=== PATIENT | male | born 1980 | race Caucasian/White ===

== ENCOUNTER 2016-05-12 15:41 | Outpatient (RCR) | payer OTHER ==
[~2016-05-12 15:41] MED LIST: PERC5TAB8
== END 2016-05-25 | disposition home or self-care (01) ==
LOC: M OUTALCOH 15:41
PROVIDERS: ATTEND Psychiatry & Neurology Psychiatry
DX: F11.20 Opioid dependence, uncomplicated (principal); Z72.0 Tobacco use

== ENCOUNTER 2016-06-17 09:51 | Outpatient (RCR) | payer OTHER | END 2016-06-22 | LOC: M OUTALCOH 09:51 | PROVIDERS: ATTEND Psychiatry & Neurology Psychiatry | DX: F11.20 Opioid dependence, uncomplicated (principal); Z72.0 Tobacco use ==

== ENCOUNTER 2016-07-01 10:40 | Outpatient (RCR) | payer OTHER | END 2016-07-23 | LOC: M OUTALCOH 10:40 | PROVIDERS: ATTEND Psychiatry & Neurology Psychiatry | DX: F11.20 Opioid dependence, uncomplicated (principal); Z72.0 Tobacco use ==

== ENCOUNTER → 2018-03-20 | Outpatient (REF) | LOC: M SMT 08:51 | DX: Z02.71 Encounter for disability determination (principal) ==

== ENCOUNTER → 2018-04-11 | Outpatient (CLI) | payer MEDICAID, OTHER ==
[~2018-04-11] MED LIST changes: +SUBO8MIS PO; +VYVA50CA4 PO
[2018-04-11 12:23] LABS: ALBUMIN 4.1 GM/DL (3.2-5.2); ALT/SGPT 88 U/L (12-78); BILIRUBIN,TOTAL 0.6 MG/DL (0.2-1.0); BLOOD UREA NITROGEN 14 MG/DL (7-18); CALCIUM LEVEL 8.9 MG/DL (8.5-10.1); CARBON DIOXIDE LEVEL 33 MEQ/L (21-32); CHLORIDE LEVEL 103 MEQ/L (98-107); CHOLESTEROL LEVEL 148 MG/DL (<200); CHOLESTEROL RISK RATIO 2.114 (<5); CREATININE FOR GFR 0.76 MG/DL (0.70-1.30); FREE T4 1.09 NG/DL (0.76-1.46); GLOMERULAR FILTRATION RATE > 60.0 (>60); GLUCOSE, FASTING 97 MG/DL (70-100); HDL CHOLESTEROL 70 MG/DL (>40); LDL CHOLESTEROL 68 MG/DL (<100); NON-HDL-C 78 MG/DL; POTASSIUM SERUM 4.6 MEQ/L (3.5-5.1); SODIUM LEVEL 139 MEQ/L (136-145); TOTAL PROTEIN 7.3 GM/DL (6.4-8.2); TRIGLYCERIDES LEVEL 48 MG/DL (<150)
[2018-04-11 12:34] LABS: HEMATOCRIT 44.9 % (42.0-52.0); HEMOGLOBIN 14.7 g/dl (13.5-17.5); MEAN CORPUSCULAR HEMOGLOBIN 30.9 pg (27.0-33.0); MEAN CORPUSCULAR HGB CONC 32.7 g/dl (32.0-36.5); MEAN CORPUSCULAR VOLUME 94.3 fl (80.0-96.0); PLATELET COUNT, AUTOMATED 116 10^3/uL (150-450); RED BLOOD COUNT 4.76 10^6/uL (4.30-6.10); WHITE BLOOD COUNT 4.6 10^3/uL (4.0-10.0)
[2018-04-12 10:24] LABS: HIV 1&2 SCREEN CENTAUR NEGATIVE (NEGATIVE)
[2018-04-12 10:40] LABS: HEPATITIS C VIRUS ABY INDEX > 11.0 INDEX (<0.8)
== END ==
LOC: M LAB 11:09
PROVIDERS: ATTEND Physician Assistant
DX: Z13.220 Encounter for screening for lipoid disorders (principal); Z11.59 Encounter for screening for other viral diseases; Z11.4 Encounter for screening for human immunodeficiency virus [HIV]; F90.9 Attention-deficit hyperactivity disorder, unspecified type

== ENCOUNTER 2018-05-09 15:08 | Emergency (ER) | payer OTHER ==
[~2018-05-09] VITALS: Ht 200.7 cm; Wt 81.8 kg
[~2018-05-09 15:08] MED LIST changes: +HYDRO50TAB PO; +RISP1TAB42 PO; +TRAZO50TA PO
[2018-05-09 15:53] LABS: HEMATOCRIT 45.8 % (42.0-52.0); HEMOGLOBIN 15.4 g/dl (13.5-17.5); MEAN CORPUSCULAR HEMOGLOBIN 31.4 pg (27.0-33.0); MEAN CORPUSCULAR HGB CONC 33.6 g/dl (32.0-36.5); MEAN CORPUSCULAR VOLUME 93.5 fl (80.0-96.0); PLATELET COUNT, AUTOMATED 178 10^3/uL (150-450); WHITE BLOOD COUNT 5.9 10^3/uL (4.0-10.0)
[2018-05-09 16:26] LABS: AMPHETAMINES LEVEL URINE NEGATIVE (NEGATIVE); BARBITURATES URINE NEGATIVE (NEGATIVE); BENZODIAZEPINES URINE NEGATIVE (NEGATIVE); CANNABINOIDS URINE POSITIVE (NEGATIVE); COCAINE METABOLITE URINE NEGATIVE (NEGATIVE); METHADONE URINE NEGATIVE (NEGATIVE); OPIATES URINE NEGATIVE (NEGATIVE); PHENCYCLIDINE URINE NEGATIVE (NEGATIVE)
[2018-05-09 16:40] LABS: ACETAMINOPHEN LEVEL < 2.0 UG/ML (10.0-30.0); ALBUMIN 4.1 GM/DL (3.2-5.2); ALT/SGPT 52 U/L (12-78); BILIRUBIN,DIRECT 0.2 MG/DL (0.0-0.2); BILIRUBIN,TOTAL 0.4 MG/DL (0.2-1.0); BLOOD UREA NITROGEN 10 MG/DL (7-18); CALCIUM LEVEL 8.7 MG/DL (8.5-10.1); CARBON DIOXIDE LEVEL 32 MEQ/L (21-32); CHLORIDE LEVEL 102 MEQ/L (98-107); CREATININE FOR GFR 0.88 MG/DL (0.70-1.30); ETHYL ALCOHOL (ETHANOL) < 0.003 % (0.000-0.010); GLOMERULAR FILTRATION RATE > 60.0 (>60); GLUCOSE, FASTING 91 MG/DL (70-100); SALICYLATE LEVEL < 1.7 MG/DL (5.0-30.0); SODIUM LEVEL 139 MEQ/L (136-145); THYROID STIMULATING HORMONE 0.753 uIU/ML (0.358-3.740); TOTAL PROTEIN 7.3 GM/DL (6.4-8.2)
[2018-05-09] MEDS ORDERED: BUPRENORPHINE/NALOXONE 8-2MG SUBLINGUAL TABLET(SUBOXONE) SL ONE (18:30)
[2018-05-09] MEDS ORDERED: ENTER DRUG NAME HERE (PATIENT'S OWN MED) SL ONE (18:45)
--- NOTE | 2018-05-09 20:17 | ECGEPIP ---
Stationary ECG Study [facility] - ED Test Date: 2018-05-09 Pat Name: KYAW QUIÑONES Department: Room: - Gender: M Carpenter Mate: michelle : 1980 Requested By: VANNA LEHMAN Order Number: [id number] Reading MD: Liam May Measurements Intervals [place] Rate: 71 P: 93 NH: 154 QRS: 74 QRSD: 105 T: 72 QT: 361 QTc: 392 Interpretive Statements SINUS RHYTHM WITH SINUS ARRHYTHMIA EARLY REPOLARIZATION VS PERICARDITIS NONSPECIFIC ST T WAVE CHANGES NO OLD ECG CLINICAL CORRELATION ADVISED Electronically Signed On 05-09-2018 20:16:31 EST by Liam May
[2018-05-10] MEDS ORDERED: BUPRENORPHINE/NALOXONE 8-2MG SUBLINGUAL TABLET(SUBOXONE) SL ONE (06:00)
[2018-05-10] MEDS ORDERED: BUPRENORPHINE/NALOXONE 2-0.5MG SUBLINGUAL TABLET(SUBOXONE) SL ONE (06:15)
[2018-05-10 08:49] VITALS: BP 134/84
== END 2018-05-10 08:54 | disposition short-term general hospital (02) ==
LOC: M ED 15:08
DX: F22 Delusional disorders (principal); F99 Mental disorder, not otherwise specified; B19.20 Unspecified viral hepatitis C without hepatic coma; Z88.8 Allergy status to other drugs, medicaments and biological substances; Z79.899 Other long term (current) drug therapy
CPT/HCPCS: 36415; 80048; 80076; 80307; 84443; 85027; 93005; 99285; G0480

== ENCOUNTER → 2018-05-12 | Outpatient (REF) | payer OTHER ==
[2018-05-12 14:58] LABS: HEPATITIS B SURFACE ANTIBODY NEGATIVE (POSITIVE); HEPATITIS B SURFACE ANTIGEN NEGATIVE (NEGATIVE)
[2018-05-18 00:06] LABS: HEPATITIS A IgG TOTAL Positive (Negative); HEPATITIS C VIRUS GENOTYPE 1a (.)
== END ==
LOC: M LABDRAW1 12:50
PROVIDERS: ATTEND Physician Assistant
DX: B17.10 Acute hepatitis C without hepatic coma (principal)

== ENCOUNTER 2018-05-17 09:58 | Inpatient (IN) | payer OTHER ==
[~2018-05-17] VITALS: Ht 200.7 cm; Wt 83.4 kg
[2018-05-17 10:56] LABS: HEMATOCRIT 44.2 % (42.0-52.0); HEMOGLOBIN 14.8 g/dl (13.5-17.5); MEAN CORPUSCULAR HEMOGLOBIN 31.3 pg (27.0-33.0); MEAN CORPUSCULAR HGB CONC 33.5 g/dl (32.0-36.5); MEAN CORPUSCULAR VOLUME 93.4 fl (80.0-96.0); PLATELET COUNT, AUTOMATED 155 10^3/uL (150-450); RED BLOOD COUNT 4.73 10^6/uL (4.30-6.10); WHITE BLOOD COUNT 5.6 10^3/uL (4.0-10.0)
[2018-05-17 11:30] LABS: AMPHETAMINES LEVEL URINE NEGATIVE (NEGATIVE); BARBITURATES URINE NEGATIVE (NEGATIVE); BENZODIAZEPINES URINE NEGATIVE (NEGATIVE); CANNABINOIDS URINE POSITIVE (NEGATIVE); COCAINE METABOLITE URINE NEGATIVE (NEGATIVE); METHADONE URINE NEGATIVE (NEGATIVE); OPIATES URINE NEGATIVE (NEGATIVE); PHENCYCLIDINE URINE NEGATIVE (NEGATIVE)
[2018-05-17 11:43] LABS: ACETAMINOPHEN LEVEL < 2.0 UG/ML (10.0-30.0); ALBUMIN 3.9 GM/DL (3.2-5.2); ALT/SGPT 70 U/L (12-78); BILIRUBIN,DIRECT 0.2 MG/DL (0.0-0.2); BILIRUBIN,TOTAL 0.3 MG/DL (0.2-1.0); BLOOD UREA NITROGEN 14 MG/DL (7-18); CARBON DIOXIDE LEVEL 29 MEQ/L (21-32); CHLORIDE LEVEL 104 MEQ/L (98-107); CREATININE FOR GFR 0.88 MG/DL (0.70-1.30); ETHYL ALCOHOL (ETHANOL) < 0.003 % (0.000-0.010); GLOMERULAR FILTRATION RATE > 60.0 (>60); GLUCOSE, FASTING 114 MG/DL (70-100); POTASSIUM SERUM 4.7 MEQ/L (3.5-5.1); SALICYLATE LEVEL < 1.7 MG/DL (5.0-30.0); SODIUM LEVEL 139 MEQ/L (136-145); TOTAL PROTEIN 7.1 GM/DL (6.4-8.2)
[2018-05-17] MEDS ORDERED: traZODone 50 MG TAB PO PRN (15:00)
[2018-05-17] MEDS ORDERED: MAALOX 30 ML SUSP *UDC PO PRN (15:00)
[2018-05-17 16:02] VITALS: BP 140/77
[2018-05-17] MEDS: BUPRENORPHINE/NALOXONE 8-2MG SUBLINGUAL TABLET(SUBOXONE) SL SCH (18:30)
[2018-05-17] MEDS: ACETAMINOPHEN TAB 650MG DOSE (2X325MG) PO PRN (18:43)
[2018-05-17] MEDS: NICOTINE POLACRILEX 2 MG GUM PO PRN ×2 (18:43→23:37)
[2018-05-17] MEDS ORDERED: PALIPERIDONE 3 MG ER TAB (INVEGA) PO SCH (21:00)
[2018-05-18] MEDS: NICOTINE POLACRILEX 2 MG GUM PO PRN ×8 (04:13→23:43)
[2018-05-18] MEDS: ACETAMINOPHEN TAB 650MG DOSE (2X325MG) PO PRN ×2 (04:14→19:24)
[2018-05-18 06:45] VITALS: BP 139/88
[2018-05-18] MEDS: BUPRENORPHINE/NALOXONE 8-2MG SUBLINGUAL TABLET(SUBOXONE) SL SCH ×2 (08:04→14:28)
[2018-05-18] MEDS: PILL CRUSHER/CUTTER 1 EACH XX PRN (08:04)
[2018-05-18] MEDS ORDERED: PALIPERIDONE 3 MG ER TAB (INVEGA) PO SCH (09:00)
[2018-05-18] MEDS: risperiDONE 1 MG TAB PO SCH (09:00)
--- NOTE | 2018-05-18 10:20 | HPEPDOC ---
[facility] Medical History & Physical Date of Admission May 17, 2018 History and Physical PCP: [facility] ATTENDING: Dr. Corby Greenfield HPI: 38yoM admitted to [facility] for psychotic disorder, being medically examined today. No acute medical complaints today. Denies any fevers, chills, weakness, fatigue, MOSS, CP, SOB, cough, palpitations, abdominal pain, N/V/D or changes in bowel or bladder habits. PMHx: Hepatitis C follows with Dr Nur Substance use Follows with Dr Saldana. ADHD. Anxiety depression PSHX: repair fracture rt arm SOCHX: Resides in: [place] Marital Status: single Kids: none Employment: unempoyed Tobacco use: Vape ETOH: denies Illicit Drugs: marijuana. Heroin last used several years ago. Suboxone as per Dr Saldana. ROS: As noted in HPI, otherwise 11pt ROS of systems reviewed and unremarkable. PE: GEN: 38yoM, appears stated age. Well-nourished, well developed. No acute distress. Alert and oriented x 3. Pleasant, interactive. HEENT: Normocephalic, atraumatic. Pupils are equal, round, and reactive to light. Extraocular movements are intact. No nystagmus appreciated. Sclera are nonicteric. Conjunctiva without injection. Nose midline. Nasal turbinates without bogginess. EACs both patent BL. TMs both visualized and zimmer with good cone of light, no bulging or erythema. No facial asymmetry. Moist mucous membranes. Dentition fair. Pharynx pink and moist, no cobblestoning. Neck supple, trachea midline. No lymphadenopathy or thyromegaly appreciated. CHEST: Regular rate and rhythm, +S1, +S2 LUNGS: Clear to auscultation bilaterally. No wheezes, rales, or rhonchi. Breathing appears symmetric and easy. Patient is speaking in full sentences. No accessory muscle use. ABD: Round, soft, non-tender, non-distended. +Bowel sounds throughout. No rebound or guarding. No costovertebral angle tenderness. EXT: Pulses 2+ bilaterally dorsalis pedis and radial. No lower extremity edema appreciated. SKIN: [place], dry, warm. Capillary refill <2sec. No rashes. NEURO: Alert and oriented x 3. Cranial nerves III-XII are intact. No focal deficits appreciated. EKG: SINUS RHYTHM WITH SINUS ARRHYTHMIA EARLY REPOLARIZATION VS PERICARDITIS NONSPECIFIC ST T WAVE CHANGES NO OLD ECG CLINICAL CORRELATION ADVISED Electronically Signed On 05-09-2018 20:16:31 EST by Liam May A&P: 38yoM admitted to [facility] for psychotic disorder 1. Psych. Plan per Psychiatry. EKG on file. 2. Nicotine dependence. Patch available. 3. Hepatitis C. Follows with Dr Nur. 4. Follow up with PCP on discharge. 5. H/O Substance use. Management per psychiatry. Follows with Dr Saldana . Vital Signs Vital Signs Date Time Temp Pulse Resp B/P (MAP) Pulse Ox O2 Delivery O2 Flow Rate FiO2 05/18/18 06:45 98.6 99 18 139/88 (105) Room Air 05/17/18 16:02 98 Laboratory Data Labs 24H Laboratory Tests 2 05/17/18 10:44: Nucleated Red Blood Cells % (auto) 0.0, Anion Gap 6L, Glomerular Filtration Rate > 60.0, Calcium Level 9.0, Aspartate Amino Transf (AST/SGOT) 62H, Alanine Aminotransferase (ALT/SGPT) 70, Alkaline Phosphatase 79, Total Bilirubin 0.3, Direct Bilirubin 0.2, Total Protein 7.1, Albumin 3.9, Albumin/Globulin Ratio 1.22, Thyroid Stimulating Hormone (TSH) 1.000, Salicylates Level < 1.7L, Urine Amphetamines Screen NEGATIVE, Urine Benzodiazepines Screen NEGATIVE, Urine Opiates Screen NEGATIVE, Urine Methadone Screen NEGATIVE, Acetaminophen Level < 2.0L, Urine Barbiturates Screen NEGATIVE, Urine Phencyclidine Screen NEGATIVE, Urine Cocaine Metabolite Screen NEGATIVE, Urine Cannabinoids Screen POSITIVEH, Ethyl Alcohol Level < 0.003 CBC/BMP Laboratory Tests 05/17/18 10:44 Red Blood Count 4.73, Mean Corpuscular Volume 93.4, Mean Corpuscular Hemoglobin 31.3, Mean Corpuscular Hemoglobin Concent 33.5, Red Cell Distribution Width 13.3 Home Medications Scheduled Buprenorphine/Naloxone (Suboxone 8-2 mg) 1 Mis Mis, 2.5 STRIP PO DAILY Allergies Coded Allergies: Gabapentin (Verified Adverse Reaction, Mild, NAUSEA, 4/613) Pentazocine (Verified Adverse Reaction, Mild, NAUSEA, 4/10/05) Noris Villalta May 18, 2018 10:20
[2018-05-18] MEDS ORDERED: LORazepam 1 MG TAB PO PRN (15:15)
[2018-05-18] MEDS ORDERED: LORazepam 0.5 MG TAB PO PRN (15:30)
[2018-05-18 18:00] VITALS: BP 140/72
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
[2018-05-18] MEDS ORDERED: hydrOXYzine 50 MG TAB PO PRN (22:00)
[2018-05-19] MEDS: ACETAMINOPHEN TAB 650MG DOSE (2X325MG) PO PRN ×2 (01:49→17:04)
[2018-05-19 07:00] VITALS: BP 124/75
[2018-05-19] MEDS: risperiDONE 1 MG TAB PO SCH ×2 (08:01→09:00)
[2018-05-19] MEDS: NICOTINE POLACRILEX 2 MG GUM PO PRN ×6 (08:37→22:45)
[2018-05-19] MEDS: BUPRENORPHINE/NALOXONE 8-2MG SUBLINGUAL TABLET(SUBOXONE) SL SCH ×2 (08:37→17:04)
[2018-05-19] MEDS ORDERED: diphenhydrAMINE INJ 50MG/ML VIAL (J1200) IM STA (10:47)
[2018-05-19] MEDS ORDERED: HALOPERIDOL 5 MG/ML VIAL (J1630) IM STA (10:47)
[2018-05-19] MEDS ORDERED: diphenhydrAMINE INJ 50MG/ML VIAL (J1200) IM ONE (11:00)
[2018-05-19] MEDS ORDERED: HALOPERIDOL 5 MG/ML VIAL (J1630) IM ONE (11:00)
[2018-05-19] MEDS ORDERED: risperiDONE 1 MG TAB PO SCH (11:30)
--- NOTE | 2018-05-19 17:24 | MHIPNPDOC ---
[facility] Progress Note Progress Note DATE OF SERVICE: 05/19/18 HISTORY: HISTORY OF THE PRESENT ILLNESS: As per ED report: "Pt presented to ED after he returned to his home and felt unsafe. Pt lives in [facility] apartment for 3.5 years. Pt reported, 2 days prior to [place], Pt started felling very cold air; to the point where he could not take a shower, "can't move",breathing in cold air, "sucking all breath out of me". According to Pt, someone is trying to harm him. Pt stated, "When lay on bed, feels like someone has pads on my shoulders, sides. shocking me", "can't use the bathroom". According to Pt, went to stay with the Uncle over the weekend, nothing happened. When Pt returned home , it started again. Pt is afraid to return to back to that same apartment. Pt's [employer] Coordinator is Trinity Nunes. Pt reported clean and on soboxone for the last 5.5 years." Today, as the patient was being iterviewed, he reported feeling different while at [facility], as if people looked at him in a different way, he said he tried to make phone calls but his calls got disconnected, that people came to the hallway and kept looking at him as if they were judging him. He said he knew that kind of look on people's face because he had been in the street using drugs years ago and he knew how to read those expressions on other people's faces. Patient didn't take his medication, inisited on the fact that he doesn't want medications that are going to make him sleepy because he needs awake in case somedy wants to harm him. VITAL SIGNS: See below. NEW TEST RESULTS: See below CURRENT MEDICATIONS: See below. MENTAL STATUS EXAMINATION: Patient is a 38-year old male, who is alert, uncooperative, pacing the hallways, restless. Speech: Is rapid, a little pressured, loud, normal tone, spontaneous and fluent. Language skills are fair. Thought processes including: circumstantial and tangential, drailed. Thought content: paranoid and bizarre delusions, denies SI and HI, denies AV hallucinations. Description of abnormal or psychotic thoughts: Patient is extremely psychotic. Today he is paranoid about staff, he doubts of all of us, he thinks we are part of a conspiracy.Initially he felt someone wanted to harm him in his apartment only but now he thinks we want to harm him too. He is experiencing somatic hallucinations at [facility] too. Judgment: poor. Insight: poor. Orientation: x3. Recent and remote memory: fair. Attention span and concentration: distractible. Language: average Fund of knowledge: average. Mood: irritable, extremely anxious. Affect: congruent with mood. DIAGNOSES: 1. Paranoid schizophrenia versus delusional disorder. 2. marihuana use disorder. 3. R/O substance induced psychotic disorder. ASSESSMENT: Patient has been non compliant with medications, he adamantly has refused to take them, he is denying having a thought disorder. Consulted with treatment team and they all thought that he was too dangerous. He was served for a TOO, but before he was served I had to speak with him once again about the medications and about him being discharged and about him seeing his private provider at [facility]. We spoke about him having a mental illness (which he denies) and needing treatment, told him he is dangerous to other people. He didn't like it but he didn't have an outburst as I had expected. At the end he said he would take the medications, he read the letter that was served to him about his TOO. After that, he calmed down, remained in his room, stopped pacing the hallways, took his medication. MANAGEMENT PLAN: Risperdal 2 mgs Po QAM ( he has requested it this way) and Suboxone, PM dose at 5 pm TIME SPENT: 25 minutes. Vital Signs Vital Signs Date Time Temp Pulse Resp B/P (MAP) Pulse Ox O2 Delivery O2 Flow Rate FiO2 05/19/18 07:00 98.0 65 14 124/75 (91) 05/18/18 06:45 Room Air 05/17/18 16:02 98 Current Medications Current Medications Acetaminophen (Tylenol Tab) 650 mg Q6HP PRN PO HEADACHE or DISCOMFORT Last administered on 05/19/18at 17:04; Start 05/17/18 at 15:00 Al Hydrox/Mg Hydrox/Simethicone (Mylanta) 30 ml Q4HP PRN PO HEARTBURN/INDIGESTION; Start 05/17/18 at 15:00 Buprenorphine/ Naloxone (Suboxone 8/2mg) 1 tab DAILY@1700 SL Last administered on 05/19/18at 17:04; Start 05/19/18 at 17:00 Buprenorphine/ Naloxone (Suboxone 8/2mg) 1 tab QPM@1400 SL Last administered on 05/18/18at 14:28; Start 05/17/18 at 14:00; Stop 05/19/18 at 12:26; Status DC Buprenorphine/ Naloxone (Suboxone 8/2mg) 1.5 tab DAILY SL Last administered on 05/19/18at 08:37; Start 05/18/18 at 09:00 Diphenhydramine HCl (Benadryl) 50 mg STAT STAT IM ; Start 05/19/18 at 10:47; Stop 05/19/18 at 10:48; Status Cancel Haloperidol (Haldol) 10 mg STAT STAT IM ; Start 05/19/18 at 10:47; Stop 05/19/18 at 10:48; Status Cancel Hydroxyzine HCl (Atarax) 50 mg Q4HP PRN PO ANXIETY/AGITATION; Start 05/18/18 at 22:00 Lorazepam (Ativan) 0.5 mg Q4HP PRN PO ANXIETY Last administered on 05/18/18at 15:38; Start 05/18/18 at 15:30; Stop 05/18/18 at 21:47; Status DC Lorazepam (Ativan) 1 mg Q4HP PRN PO ANXIETY; Start 05/18/18 at 15:15; Stop 05/18/18 at 15:29; Status DC Magnesium Hydroxide (Milk Of Magnesia) 30 ml DAILYPRN PRN PO CONSTIPATION; Start 05/17/18 at 15:00 Nicotine (Nicorette) 2 mg Q2HP PRN PO SMOKING CESSATION Last administered on 05/19/18at 14:39; Start 05/17/18 at 18:45 Paliperidone (Invega) 3 mg QAM PO Last administered on 05/18/18at 11:38; Start 05/18/18 at 09:00; Stop 05/18/18 at 15:10; Status DC Paliperidone (Invega) 3 mg QHS PO ; Start 05/17/18 at 21:00; Stop 05/18/18 at 11:16; Status DC Risperidone (RisperDAL) 1 mg BID PO Last administered on 05/19/18at 11:28; Start 05/19/18 at 11:30; Stop 05/19/18 at 12:22; Status DC Risperidone (RisperDAL) 1 mg DAILY PO ; Start 05/18/18 at 09:00; Stop 05/19/18 at 11:23; Status DC Risperidone (RisperDAL) 2 mg QAM PO ; Start 05/20/18 at 09:00 Trazodone HCl (Desyrel) 50 mg QHSP PRN PO INSOMNIA; Start 05/17/18 at 15:00 Allergies Coded Allergies: Gabapentin (Verified Adverse Reaction, Mild, NAUSEA, 07/29/12) Pentazocine (Verified Adverse Reaction, Mild, NAUSEA, 07/29/12) BEN GRAHAM MD May 19, 2018 17:24
[2018-05-19 18:17] VITALS: BP 128/60
[2018-05-20] MEDS: NICOTINE POLACRILEX 2 MG GUM PO PRN ×6 (06:00→21:20)
[2018-05-20 06:14] VITALS: BP 118/64
[2018-05-20] MEDS: risperiDONE 2 MG TAB PO SCH (09:08)
[2018-05-20] MEDS: PILL CRUSHER/CUTTER 1 EACH XX PRN (09:08)
[2018-05-20] MEDS: BUPRENORPHINE/NALOXONE 8-2MG SUBLINGUAL TABLET(SUBOXONE) SL SCH ×2 (09:08→16:52)
[2018-05-20] MEDS: ACETAMINOPHEN TAB 650MG DOSE (2X325MG) PO PRN (15:06)
[2018-05-20 18:00] VITALS: BP 133/74
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
[2018-05-21 06:31] VITALS: BP 130/76
[2018-05-21] MEDS: BUPRENORPHINE/NALOXONE 8-2MG SUBLINGUAL TABLET(SUBOXONE) SL SCH ×2 (08:44→17:19)
[2018-05-21] MEDS: risperiDONE 2 MG TAB PO SCH (08:46)
[2018-05-21] MEDS: DOCUSATE SODIUM 100 MG CAP PO SCH ×2 (09:00→21:00)
[2018-05-21] MEDS ORDERED: DOCUSATE SODIUM 100 MG CAP PO SCH (09:00)
[2018-05-21] MEDS: BISACODYL 5 MG TAB PO SCH (09:00)
[2018-05-21] MEDS: ACETAMINOPHEN TAB 650MG DOSE (2X325MG) PO PRN ×2 (10:35→16:10)
[2018-05-21] MEDS: NICOTINE POLACRILEX 2 MG GUM PO PRN ×4 (10:36→21:10)
[2018-05-21] MEDS: MOM 30ML SUSPENSION UDC PO PRN (11:37)
--- NOTE | 2018-05-21 12:23 | MHIPNPDOC ---
[facility] Progress Note Progress Note DATE OF SERVICE: 05/21/18 HISTORY: HISTORY OF THE PRESENT ILLNESS: As per ED report: "Pt presented to ED after he returned to his home and felt unsafe. Pt lives in [facility] apartment for 3.5 years. Pt reported, 2 days prior to [place], Pt started felling very cold air; to the point where he could not take a shower, "can't move",breathing in cold air, "sucking all breath out of me". According to Pt, someone is trying to harm him. Pt stated, "When lay on bed, feels like someone has pads on my shoulders, sides. shocking me", "can't use the bathroom". According to Pt, went to stay with the Uncle over the weekend, nothing happened. When Pt returned home , it started again. Pt is afraid to return to back to that same apartment. Pt's TLS Coordinator is Trinity Nunes. Pt reported clean and on soboxone for the last 5.5 years." Today, as the patient was being iterviewed, he reported feeling different [facility] at [facility], as if people looked at him in a different way, he said he tried to make phone calls but his calls got disconnected, that people came to the hallway and kept looking at him as if they were judging him. He said he knew that kind of look on people's face because he had been in the street using drugs years ago and he knew how to read those expressions on other people's faces. Patient didn't take his medication, inisited on the fact that he doesn't want medications that are going to make him sleepy because he needs awake in case somedy wants to harm him. VITAL SIGNS: See below. NEW TEST RESULTS: See below CURRENT MEDICATIONS: See below. MENTAL STATUS EXAMINATION: Patient is a 38-year old male, who is alert,cooperative, calm today Speech: Is less rapid, a little less pressured, loud, normal tone, spontaneous and fluent. Language skills are fair. Thought processes including: Still disorganized, although less than when he was admitted Thought content: paranoid and bizarre delusions, denies SI and HI, denies AV hallucinations. Description of abnormal or psychotic thoughts: He still has paranoid and bizarre delusions Judgment: poor. Insight: poor. Orientation: x3. Recent and remote memory: fair. Attention span and concentration: distractible. Language: average Fund of knowledge: average. Mood: anxious. Affect: congruent with mood. DIAGNOSES: 1. Paranoid schizophrenia versus delusional disorder. 2. marihuana use disorder. 3. R/O substance induced psychotic disorder. ASSESSMENT: Patient has been calmer, he is not complaining of staff or other patients looking at him in a different way. He has complained of constipation,most likely secondary to Suboxone, ordered Dulcolax and Colace. He has been compliant with his medications but did not want to take the Dulcolax/Colace after he had said he needed something for constipation. MANAGEMENT PLAN: Risperdal 2 mgs Po QAM ( he has requested it this way) and Suboxone, PM dose at 5 pm TIME SPENT: 25 minutes. Vital Signs Vital Signs Date Time Temp Pulse Resp B/P (MAP) Pulse Ox O2 Delivery O2 Flow Rate FiO2 05/21/18 06:31 98.5 59 18 130/76 (94) Room Air 05/17/18 16:02 98 Current Medications Current Medications Acetaminophen (Tylenol Tab) 650 mg Q6HP PRN PO HEADACHE or DISCOMFORT Last administered on 05/21/18at 10:35; Start 05/17/18 at 15:00 Al Hydrox/Mg Hydrox/Simethicone (Mylanta) 30 ml Q4HP PRN PO HEARTBURN/INDIGESTION; Start 05/17/18 at 15:00 Bisacodyl (Dulcolax Tab) 5 mg DAILY PO ; Start 05/21/18 at 09:00 Buprenorphine/ Naloxone (Suboxone 8/2mg) 1 tab DAILY@1700 SL Last administered on 05/20/18at 16:52; Start 05/19/18 at 17:00 Buprenorphine/ Naloxone (Suboxone 8/2mg) 1 tab QPM@1400 SL Last administered on 05/18/18at 14:28; Start 05/17/18 at 14:00; Stop 05/19/18 at 12:26; Status DC Buprenorphine/ Naloxone (Suboxone 8/2mg) 1.5 tab DAILY SL Last administered on 05/21/18at 08:44; Start 05/18/18 at 09:00 Diphenhydramine HCl (Benadryl) 50 mg STAT STAT IM ; Start 05/19/18 at 10:47; Stop 05/19/18 at 10:48; Status Cancel Docusate Sodium (Colace) 100 mg BID PO ; Start 05/21/18 at 09:00 Docusate Sodium (Colace) 100 mg DAILY PO ; Start 05/21/18 at 09:00; Status UNV Haloperidol (Haldol) 10 mg STAT STAT IM ; Start 05/19/18 at 10:47; Stop 05/19/18 at 10:48; Status Cancel Hydroxyzine HCl (Atarax) 50 mg Q4HP PRN PO ANXIETY/AGITATION; Start 05/18/18 at 22:00 Lorazepam (Ativan) 0.5 mg Q4HP PRN PO ANXIETY Last administered on 05/18/18at 15:38; Start 05/18/18 at 15:30; Stop 05/18/18 at 21:47; Status DC Lorazepam (Ativan) 1 mg Q4HP PRN PO ANXIETY; Start 05/18/18 at 15:15; Stop 05/18/18 at 15:29; Status DC Magnesium Hydroxide (Milk Of Magnesia) 30 ml DAILYPRN PRN PO CONSTIPATION Last administered on 05/21/18at 11:37; Start 05/17/18 at 15:00 Nicotine (Nicorette) 2 mg Q2HP PRN PO SMOKING CESSATION Last administered on 05/21/18at 10:36; Start 05/17/18 at 18:45 Paliperidone (Invega) 3 mg QAM PO Last administered on 05/18/18at 11:38; Start 05/18/18 at 09:00; Stop 05/18/18 at 15:10; Status DC Paliperidone (Invega) 3 mg QHS PO ; Start 05/17/18 at 21:00; Stop 05/18/18 at 11:16; Status DC Risperidone (RisperDAL) 1 mg BID PO Last administered on 05/19/18at 11:28; Star t 05/19/18 at 11:30; Stop 05/19/18 at 12:22; Status DC Risperidone (RisperDAL) 1 mg DAILY PO ; Start 05/18/18 at 09:00; Stop 05/19/18 at 11:23; Status DC Risperidone (RisperDAL) 2 mg QAM PO Last administered on 05/21/18at 08:46; Start 05/20/18 at 09:00 Trazodone HCl (Desyrel) 50 mg QHSP PRN PO INSOMNIA; Start 05/17/18 at 15:00 Allergies Coded Allergies: Gabapentin (Verified Adverse Reaction, Mild, NAUSEA, 07/29/12) Pentazocine (Verified Adverse Reaction, Mild, NAUSEA, 07/29/12) BEN GRAHAM MD May 21, 2018 12:22
[2018-05-21 18:00] VITALS: BP 127/60
[2018-05-22 01:18] VITALS: BP 173/80
[2018-05-22 01:36] VITALS: BP 130/74
[2018-05-22] MEDS ORDERED: diphenhydrAMINE 50 MG CAP PO ONE (01:45)
[2018-05-22] MEDS ORDERED: LORazepam 2 MG TAB PO ONE (01:45)
[2018-05-22] MEDS: ACETAMINOPHEN TAB 650MG DOSE (2X325MG) PO PRN ×4 (01:59→21:08)
[2018-05-22] MEDS: NICOTINE POLACRILEX 2 MG GUM PO PRN ×8 (02:04→21:27)
[2018-05-22 02:26] LABS: CPK CREATINE PHOSPHOKINASE 223 U/L (39-308); MB/CK RELATIVE INDEX 3.36 (< OR =4); TROPONIN I < 0.02 NG/ML (< 0.10)
[2018-05-22 06:00] VITALS: BP 123/74
[2018-05-22] MEDS: risperiDONE 2 MG TAB PO SCH (08:18)
[2018-05-22] MEDS: DOCUSATE SODIUM 100 MG CAP PO SCH ×2 (08:18→21:07)
[2018-05-22] MEDS: BISACODYL 5 MG TAB PO SCH (08:18)
[2018-05-22] MEDS: PILL CRUSHER/CUTTER 1 EACH XX PRN (08:20)
[2018-05-22] MEDS: BUPRENORPHINE/NALOXONE 8-2MG SUBLINGUAL TABLET(SUBOXONE) SL SCH ×2 (08:20→16:34)
--- NOTE | 2018-05-22 10:42 | MHIPNPDOC ---
[facility] Progress Note Progress Note DATE OF SERVICE: 05/22/18 HISTORY: HISTORY OF THE PRESENT ILLNESS: As per ED report: "Pt presented to ED after he returned to his home and felt unsafe. Pt lives in [facility] apartment for 3.5 years. Pt reported, 2 days prior to [place], Pt started felling very cold air; to the point where he could not take a shower, "can't move",breathing in cold air, "sucking all breath out of me". According to Pt, someone is trying to harm him. Pt stated, "When lay on bed, feels like someone has pads on my shoulders, sides. shocking me", "can't use the bathroom". According to Pt, went to stay with the Uncle over the weekend, nothing happened. When Pt returned home , it started again. Pt is afraid to return to back to that same apartment. Pt's TLS Coordinator is Trinity Nunes. Pt reported clean and on soboxone for the last 5.5 years." Today, the patient was interviewed in his room. He woke up last evening with in the midst of a panic attack. He was able to calm himself down by utilizing a number of coping strategies. He is unsure why this occurred. Lab work and EKG were normal. Today he states that he is feeling better. VITAL SIGNS: See below. NEW TEST RESULTS: See below CURRENT MEDICATIONS: See below. MENTAL STATUS EXAMINATION: Patient is a 38-year old male, who is alert, cooperative, somewhat anxious today Speech: Is less rapid, a little less pressured, loud, normal tone, spontaneous and fluent. Language skills are fair. Thought processes including: Still disorganized, although less than when he was admitted Thought content: paranoid and bizarre delusions, denies SI and HI, denies AV hallucinations. Description of abnormal or psychotic thoughts: He still has paranoid and bizarre delusions Judgment: poor. Insight: poor. Orientation: x3. Recent and remote memory: fair. Attention span and concentration: distractible. Language: average Fund of knowledge: average. Mood: anxious. Affect: congruent with mood. DIAGNOSES: 1. Paranoid schizophrenia versus delusional disorder. 2. marihuana use disorder. 3. R/O substance induced psychotic disorder. ASSESSMENT: Mr. Orozco continues to demonstrates signs of anxiety and paranoia. He shares that certain members of staff make him uneasy and anxious. He is trying not to ruminate on this. He has been active, out of his room, and taking his medications as prescribed. He utilized Dulcolax and Colace this morning for constipation with good relief. Mr. Orozco continues to complain of cervical muscle pain/tightness but does not want medication. He denies SI, HI or A/V hallucinations. He contracts for safety while on the unit. MANAGEMENT PLAN: Continue Risperdal 2 mg PO QAM (he has requested it this way) and Suboxone, PM dose at 5 pm. Continue to search for alternative options for housing upon D/C. TIME SPENT: 15 minutes. Vital Signs Vital Signs Date Time Temp Pulse Resp B/P (MAP) Pulse Ox O2 Delivery O2 Flow Rate FiO2 05/22/18 06:00 97.0 52 18 123/74 (90) Room Air 05/22/18 01:36 100 Laboratory Data 24H Labs Laboratory Tests 2 05/22/18 01:52: Total Creatine Kinase 223, Creatine Kinase MB 8.0H, Creatine Kinase MB Relative Index 3.36, Troponin I < 0.02 Current Medications Current Medications Acetaminophen (Tylenol Tab) 650 mg Q6HP PRN PO HEADACHE or DISCOMFORT Last administered on 05/22/18at 08:38; Start 05/17/18 at 15:00 Al Hydrox/Mg Hydrox/Simethicone (Mylanta) 30 ml Q4HP PRN PO HEARTBURN/INDIGESTION; Start 05/17/18 at 15:00 Bisacodyl (Dulcolax Tab) 5 mg DAILY PO Last administered on 05/22/18at 08:18; Start 05/21/18 at 09:00 Buprenorphine/ Naloxone (Suboxone 8/2mg) 1 tab DAILY@1700 SL Last administered on 05/21/18at 17:19; Start 05/19/18 at 17:00 Buprenorphine/ Naloxone (Suboxone 8/2mg) 1 tab QPM@1400 SL Last administered on 05/18/18at 14:28; Start 05/17/18 at 14:00; Stop 05/19/18 at 12:26; Status DC Buprenorphine/ Naloxone (Suboxone 8/2mg) 1.5 tab DAILY SL Last administered on 05/22/18at 08:20; Start 05/18/18 at 09:00 Diphenhydramine HCl (Benadryl) 50 mg STAT STAT IM ; Start 05/19/18 at 10:47; Stop 05/19/18 at 10:48; Status Cancel Docusate Sodium (Colace) 100 mg BID PO Last administered on 05/22/18at 08:18; Start 05/21/18 at 09:00 Docusate Sodium (Colace) 100 mg DAILY PO ; Start 05/21/18 at 09:00; Status UNV Haloperidol (Haldol) 10 mg STAT STAT IM ; Start 05/19/18 at 10:47; Stop 05/19/18 at 10:48; Status Cancel Hydroxyzine HCl (Atarax) 50 mg Q4HP PRN PO ANXIETY/AGITATION; Start 05/18/18 at 22:00 Lorazepam (Ativan) 0.5 mg Q4HP PRN PO ANXIETY Last administered on 05/18/18at 15:38; Start 05/18/18 at 15:30; Stop 05/18/18 at 21:47; Status DC Lorazepam (Ativan) 1 mg Q4HP PRN PO ANXIETY; Start 05/18/18 at 15:15; Stop 05/18/18 at 15:29; Status DC Magnesium Hydroxide (Milk Of Magnesia) 30 ml DAILYPRN PRN PO CONSTIPATION Last administered on 05/21/18at 11:37; Start 05/17/18 at 15:00 Nicotine (Nicorette) 2 mg Q2HP PRN PO SMOKING CESSATION Last administered on 05/22/18at 08:44; Start 05/17/18 at 18:45 Paliperidone (Invega) 3 mg QAM PO Last administered on 05/18/18at 11:38; Start 05/18/18 at 09:00; Stop 05/18/18 at 15:10; Status DC Paliperidone (Invega) 3 mg QHS PO ; Start 05/17/18 at 21:00; Stop 05/18/18 at 11:16; Status DC Risperidone (RisperDAL) 1 mg BID PO Last administered on 05/19/18at 11:28; Start 05/19/18 at 11:30; Stop 05/19/18 at 12:22; Status DC Risperidone (RisperDAL) 1 mg DAILY PO ; Start 05/18/18 at 09:00; Stop 05/19/18 at 11:23; Status DC Risperidone (RisperDAL) 2 mg QAM PO Last administered on 05/22/18at 08:18; Start 05/20/18 at 09:00 Trazodone HCl (Desyrel) 50 mg QHSP PRN PO INSOMNIA; Start 05/17/18 at 15:00 Allergies Coded Allergies: Gabapentin (Verified Adverse Reaction, Mild, NAUSEA, 07/29/12) Pentazocine (Verified Adverse Reaction, Mild, NAUSEA, 07/29/12) GME ATTESTATION GME ATTESTATION My faculty preceptor for this patient encounter was physically present during the encounter and was fully available. All aspects of the patient interview, examination, medical decision making process, and medical care plan development were reviewed and approved by the faculty preceptor. The faculty preceptor is aware and concurs with the plan as stated in the body of this note and will attest to such by his/her cosignature. JERAMY JAQUEZ DO May 22, 2018 10:42
[2018-05-22] MEDS: MOM 30ML SUSPENSION UDC PO PRN (12:00)
[2018-05-22 18:32] VITALS: BP 134/75
[2018-05-23 06:42] VITALS: BP 123/65
[2018-05-23] MEDS: ACETAMINOPHEN TAB 650MG DOSE (2X325MG) PO PRN ×3 (06:53→19:51)
[2018-05-23] MEDS: NICOTINE POLACRILEX 2 MG GUM PO PRN ×6 (06:53→19:51)
[2018-05-23] MEDS: BISACODYL 5 MG TAB PO SCH (08:06)
[2018-05-23] MEDS: DOCUSATE SODIUM 100 MG CAP PO SCH ×2 (08:06→22:14)
[2018-05-23] MEDS: BUPRENORPHINE/NALOXONE 8-2MG SUBLINGUAL TABLET(SUBOXONE) SL SCH ×2 (08:07→16:58)
[2018-05-23] MEDS: risperiDONE 2 MG TAB PO SCH (09:43)
[2018-05-23] MEDS ORDERED: ANALGESIC BALM CRM 120 GM TOP PRN ×2 (12:15→12:30)
[2018-05-23] MEDS ORDERED: diphenhydrAMINE 50 MG CAP PO PRN (12:15)
--- NOTE | 2018-05-23 13:05 | MHIPNPDOC ---
[facility] Progress Note Progress Note DATE OF SERVICE: 05/23/18 HISTORY: HISTORY OF THE PRESENT ILLNESS: As per ED report: "Pt presented to ED after he returned to his home and felt unsafe. Pt lives in [facility] apartment for 3.5 years. Pt reported, 2 days prior to [place], Pt started felling very cold air; to the point where he could not take a shower, "can't move",breathing in cold air, "sucking all breath out of me". According to Pt, someone is trying to harm him. Pt stated, "When lay on bed, feels like someone has pads on my shoulders, sides. shocking me", "can't use the bathroom". According to Pt, went to stay with the Uncle over the weekend, nothing happened. When Pt returned home , it started again. Pt is afraid to return to back to that same apartment. Pt's TLS Coordinator is Trinity Nunes. Pt reported clean and on soboxone for the last 5.5 years." Today, the patient was interviewed in his room. He woke up last evening with in the midst of a panic attack. He was able to calm himself down by utilizing a number of coping strategies. He is unsure why this occurred. Lab work and EKG were normal. Today he states that he is feeling better. VITAL SIGNS: See below. NEW TEST RESULTS: See below CURRENT MEDICATIONS: See below. MENTAL STATUS EXAMINATION: Patient is a 38-year old male, who is alert, cooperative, a little anxious Speech: Is less rapid, a little less pressured, loud, normal tone, spontaneous and fluent. Language skills are fair. Thought processes including: A little disorganized but he can follow a conversation. Thought content: paranoid and bizarre delusions, denies SI and HI, denies AV hallucinations. Description of abnormal or psychotic thoughts: He is still a little paranoid, he was seen with his hospital pants under another pair of hospital pants and then, he put on his jeans. Judgment: poor. Insight: poor. Orientation: x3. Recent and remote memory: fair. Attention span and concentration: distractible. Language: average Fund of knowledge: average. Mood: anxious. Affect: congruent with mood. DIAGNOSES: 1. Paranoid schizophrenia versus delusional disorder. 2. marihuana use disorder. 3. R/O substance induced psychotic disorder. ASSESSMENT: The patient says that taking Risperdal has been good for him, he says he still feels calmer, he has been able to sleep well. He says that he doesn't feel scared of other peopl, he doesn't think that staff wants to harm him. 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 He is not agitated, he is not irritable, his anxiety has decreased probably an 80% but he still has certain resistance for medications. I asked him if he would prefer to take Risperdal, injected instead of taking it orally. Explained it would help him because he wouldn't have to take pills all the time, that he might forget taking. He refused, he said he doesn't want any injections. None, he said. He also said he has talked to his aunt in [place], to see if he can stay there for a couple of days and she had told him that he could stay there, but I tell him once again that is better if he can go to a place of his own. He doesn't do well with other people, that triggers his paranoid delusions, it's better for him to live by himself. will continue with the same treatment plan. MANAGEMENT PLAN: Continue Risperdal 2 mg PO QAM (he has requested it this way) and Suboxone, PM dose at 5 pm. Continue to search for alternative options for housing upon D/C. TIME SPENT: 15 minutes. Vital Signs Vital Signs Date Time Temp Pulse Resp B/P (MAP) Pulse Ox O2 Delivery O2 Flow Rate FiO2 05/23/18 06:42 97.2 65 16 123/65 (84) 05/22/18 06:00 Room Air 05/22/18 01:36 100 Current Medications Current Medications Acetaminophen (Tylenol Tab) 650 mg Q6HP PRN PO HEADACHE or DISCOMFORT Last administered on 05/23/18at 06:53; Start 05/17/18 at 15:00 Al Hydrox/Mg Hydrox/Simethicone (Mylanta) 30 ml Q4HP PRN PO HEARTBURN/INDIGESTION; Start 05/17/18 at 15:00 Bisacodyl (Dulcolax Tab) 5 mg DAILY PO Last administered on 05/23/18at 08:06; Start 05/21/18 at 09:00 Buprenorphine/ Naloxone (Suboxone 8/2mg) 1 tab DAILY@1700 SL Last administered on 05/22/18at 16:34; Start 05/19/18 at 17:00 Buprenorphine/ Naloxone (Suboxone 8/2mg) 1 tab QPM@1400 SL Last administered on 05/18/18at 14:28; Start 05/17/18 at 14:00; Stop 05/19/18 at 12:26; Status DC Buprenorphine/ Naloxone (Suboxone 8/2mg) 1.5 tab DAILY SL Last administered on 05/23/18at 08:07; Start 05/18/18 at 09:00 Diphenhydramine HCl (Benadryl) 50 mg QHSP PRN PO INSOMNIA; Start 05/23/18 at 12:15 Diphenhydramine HCl (Benadryl) 50 mg STAT STAT IM ; Start 05/19/18 at 10:47; Stop 05/19/18 at 10:48; Status Cancel Docusate Sodium (Colace) 100 mg BID PO Last administered on 05/23/18at 08:06; Start 05/21/18 at 09:00 Docusate Sodium (Colace) 100 mg DAILY PO ; Start 05/21/18 at 09:00; Status UNV Haloperidol (Haldol) 10 mg STAT STAT IM ; Start 05/19/18 at 10:47; Stop 05/19/18 at 10:48; Status Cancel Hydroxyzine HCl (Atarax) 50 mg Q4HP PRN PO ANXIETY/AGITATION; Start 05/18/18 at 22:00 Lorazepam (Ativan) 0.5 mg Q4HP PRN PO ANXIETY Last administered on 05/18/18at 1 5:38; Start 05/18/18 at 15:30; Stop 05/18/18 at 21:47; Status DC Lorazepam (Ativan) 1 mg Q4HP PRN PO ANXIETY; Start 05/18/18 at 15:15; Stop 05/18/18 at 15:29; Status DC Magnesium Hydroxide (Milk Of Magnesia) 30 ml DAILYPRN PRN PO CONSTIPATION Last administered on 05/22/18at 12:00; Start 05/17/18 at 15:00 Menthol/Methyl Salicylate (Bengay Cream) 1 dose QIDP PRN TOP PAIN; Start 05/23/18 at 12:30 Menthol/Methyl Salicylate (Bengay Cream) TO BILATERAL LEGS QIDP PRN TOP PAIN; Start 05/23/18 at 12:15; Stop 05/23/18 at 12:25; Status DC Nicotine (Nicorette) 2 mg Q2HP PRN PO SMOKING CESSATION Last administered on 05/23/18at 11:48; Start 05/17/18 at 18:45 Paliperidone (Invega) 3 mg QAM PO Last administered on 05/18/18at 11:38; Start 05/18/18 at 09:00; Stop 05/18/18 at 15:10; Status DC Paliperidone (Invega) 3 mg QHS PO ; Start 05/17/18 at 21:00; Stop 05/18/18 at 11:16; Status DC Risperidone (RisperDAL) 1 mg BID PO Last administered on 05/19/18at 11:28; Start 05/19/18 at 11:30; Stop 05/19/18 at 12:22; Status DC Risperidone (RisperDAL) 1 mg DAILY PO ; Start 05/18/18 at 09:00; Stop 05/19/18 at 11:23; Status DC Risperidone (RisperDAL) 2 mg QAM PO Last administered on 05/23/18at 09:43; Start 05/20/18 at 09:00 Trazodone HCl (Desyrel) 50 mg QHSP PRN PO INSOMNIA; Start 05/17/18 at 15:00 Allergies Coded Allergies: Gabapentin (Verified Adverse Reaction, Mild, NAUSEA, 07/29/12) Pentazocine (Verified Adverse Reaction, Mild, NAUSEA, 07/29/12) BEN GRAHAM MD May 23, 2018 13:05
[2018-05-23 18:00] VITALS: BP 131/84
[2018-05-23] MEDS ORDERED: diphenhydrAMINE 50 MG CAP PO SCH (21:00)
--- NOTE | 2018-05-24 00:25 | ECGEPIP ---
Stationary ECG Study [facility] Test Date: 2018-05-22 Pat Name: KYAW QUIÑONES Department: Room: [place] [address] Gender: M Supervisor [employer]: : 1980 Requested By: BEN Dennison Order Number: [id number] Reading MD: Pk Varghese Measurements Intervals [place] Rate: 68 P: 75 AL: 169 QRS: 74 QRSD: 100 T: 71 QT: 359 QTc: 383 Interpretive Statements SINUS RHYTHM WITH OCCASIONAL VENTRICULAR PREMATURE COMPLEXES EARLY REPOLARIZATION PRIOR TRACING ON 05/09/2018 AT 4:19 P.M., NO REMARKABLE CHANGES BUT ISOLATED PVCS NOW NOTED Electronically Signed On 05-24-2018 0:24:57 EST by Pk Varghese
[2018-05-24] MEDS: NICOTINE POLACRILEX 2 MG GUM PO PRN ×2 (06:41→09:04)
[2018-05-24 06:46] VITALS: BP 137/75
[2018-05-24] MEDS: ACETAMINOPHEN TAB 650MG DOSE (2X325MG) PO PRN (08:19)
[2018-05-24] MEDS: BISACODYL 5 MG TAB PO SCH (08:20)
[2018-05-24] MEDS: DOCUSATE SODIUM 100 MG CAP PO SCH (08:20)
[2018-05-24] MEDS: BUPRENORPHINE/NALOXONE 8-2MG SUBLINGUAL TABLET(SUBOXONE) SL SCH (08:20)
[2018-05-24] MEDS: PILL CRUSHER/CUTTER 1 EACH XX PRN (08:21)
[2018-05-24] MEDS: risperiDONE 2 MG TAB PO SCH (09:00)
[2018-05-24] MEDS ORDERED: DIPH50CA PO (10:23)
[2018-05-24] MEDS ORDERED: BISAC5TA PO (10:23)
[2018-05-24] MEDS ORDERED: RISP2TAB32 PO (10:23)
[2018-05-24] MEDS ORDERED: TRAZO50TA PO (10:23)
[2018-05-24] MEDS ORDERED: COLA100C5 PO (10:23)
[2018-05-24] MEDS ORDERED: HYDRO50TAB PO (10:23)
--- NOTE | 2018-05-24 19:44 | MHDSPDOC ---
[facility] Discharge Summary Discharge Summary DATE OF ADMISSION: May 17, 2018 at 14:51 DATE OF DISCHARGE: May 24, 2018 at 12:00 DISCHARGE DIAGNOSES: 1. Paranoid schizophrenia versus delusional disorder. 2. marihuana use disorder. 3. R/O substance induced psychotic disorder. REASON FOR ADMISSION: As per ED report: "Pt presented to ED after he returned to his home and felt unsafe. Pt lives in [facility] apartment for 3.5 years. Pt reported, 2 days prior to [place], Pt started felling very cold air; to the point where he could not take a shower, "can't move",breathing in cold air, "sucking all breath out of me". According to Pt, someone is trying to harm him. Pt stated, "When lay on bed, feels like someone has pads on my shoulders, sides. shocking me", "can't use the bathroom". According to Pt, went to stay with the Uncle over the weekend, nothing happened. When Pt returned home , it started again. Pt is afraid to return to back to that same apartment. Pt's [facility] Coordinator is Trinity Nunes. Pt reported clean and on soboxone for the last 5.5 years." Today, the patient was interviewed in his room. He woke up last evening with in the midst of a panic attack. He was able to calm himself down by utilizing a number of coping strategies. He is unsure why this occurred. Lab work and EKG were normal. Today he states that he is feeling better. CONSULTANTS INVOLVED: None TREATMENT AND PROGRESS ON THE UNIT : Patient accepted treatment after being resistant for almost 24 hours. At the beginning he was very paranoid, he thought the staff was looking at him in a different way, he felt as he felt in his apartment where he felt someone was blowing cold air onto him, trying to harm. He improved with Risperdal but he refused to have his injectable form. He said he was going to go to his aunt's home in [place], that she was agreeable to have him in there. He will follow up at [facility]. Patient's illness will be under control if he takes his medication, he says he will because he feels calmer, less scared but he still denies having a mental illness. HOSPITAL COURSE: As above DISCHARGE ASSESSMENT: Patient was not suicidal, not homicidal and he was not paranoid, he didn't have AV hallucinations. He was not in danger to self or others. MENTAL STATUS EXAMINATION ON DISCHARGE: Patient is a 38-year old male, who is alert, cooperative, a little anxious Speech: Is less rapid, a little less pressured, loud, normal tone, spontaneous and fluent. Language skills are fair. Thought processes including: linear Thought content: paranoid and bizarre delusions, denies SI and HI, denies AV hallucinations. Description of abnormal or psychotic thoughts: His paranoid thoughts have decreased substantially, he doesn't feel threatened by staff, he says he doesn't feel other people are to get him, he was able to sleep well because he was not afraid. Judgment: improving Insight: improving Orientation: x3. Recent and remote memory: fair. Attention span and concentration: fair Language: average Fund of knowledge: average. Mood: anxious. Affect: congruent with mood. DIAGNOSES: 1. Paranoid schizophrenia versus delusional disorder. 2. marihuana use disorder. 3. R/O substance induced psychotic disorder. MEDICATIONS ON DISCHARGE: Scheduled Bisacodyl (Bisacodyl EC) 5 Mg Tab, 5 MG PO DAILY for constipation, #7 Buprenorphine/Naloxone (Suboxone 8-2 mg) 1 Mis Mis, 2.5 STRIP PO DAILY, (Reported) Diphenhydramine HCl (Diphenhydramine HCl) 50 Mg Cap, 50 MG PO QHS for eps, #7 Docusate Sodium (Colace) 100 Mg Cap, 100 MG PO BID for constipation, #14 Risperidone (Risperdal) 2 Mg Tab, 2 MG PO QHS for psychosis, #7 Scheduled PRN Hydroxyzine HCl (Hydroxyzine HCl) 50 Mg Tab, 50 MG PO Q4HP PRN for ANXIETY/AGITATION, #42 Trazodone HCl (Trazodone HCl) 50 Mg Tab, 50 MG PO QHSP PRN for INSOMNIA, #7 PLAN/FOLLOWUP ARRANGEMENTS: Follow Up Care Education Label * Mental Health Appt 1 * Mental Health [facility] * Established With This Provider Yes * Therapist POLLO MCKEON * Date May 26, 2018 * Time 09:30 * Follow Up Care Education Label * Care Coordination * Care Coordination/Case Management/Supervision Transitional Living Serv * Established With This Provider Yes * Nursing Department Chairperson Trinity Cody * Follow Up Care Education Label * Medical * Medical Follow Up [facility]: AKSHAT MAGALLON PA-C * Established With This Provider Yes * Date Jun 07, 2018 * Time 10:15 * Follow Up Care Education Label * Smoking Cessation * Smoking Cessation [facility] Smoking Cessation * Additional information see attached form The amount of time spent in the coordination of care for this patient was approximately 30 minutes. Vital Signs/I&Os Vital Signs Date Time Temp Pulse Resp B/P (MAP) Pulse Ox O2 Delivery O2 Flow Rate FiO2 05/24/18 06:46 97.6 64 16 137/75 (95) 05/22/18 06:00 Room Air 05/22/18 01:36 100 Medications Scheduled Bisacodyl (Bisacodyl EC) 5 Mg Tab, 5 MG PO DAILY for constipation, #7 Buprenorphine/Naloxone (Suboxone 8-2 mg) 1 Mis Mis, 2.5 STRIP PO DAILY, (Reported) Diphenhydramine HCl (Diphenhydramine HCl) 50 Mg Cap, 50 MG PO QHS for eps, #7 Docusate Sodium (Colace) 100 Mg Cap, 100 MG PO BID for constipation, #14 Risperidone (Risperdal) 2 Mg Tab, 2 MG PO QHS for psychosis, #7 Scheduled PRN Hydroxyzine HCl (Hydroxyzine HCl) 50 Mg Tab, 50 MG PO Q4HP PRN for ANXIETY/AGITATION, #42 Trazodone HCl (Trazodone HCl) 50 Mg Tab, 50 MG PO QHSP PRN for INSOMNIA, #7 Allergies Coded Allergies: Gabapentin (Verified Adverse Reaction, Mild, NAUSEA, 07/29/12) Pentazocine (Verified Adverse Reaction, Mild, NAUSEA, 07/29/12) BEN GRAHAM MD May 24, 2018 19:39
[2018-05-24] MEDS ORDERED: risperiDONE 2 MG TAB PO SCH (21:00)
== END 2018-05-24 12:00 | disposition home or self-care (01) | DRG 750 ==
LOC: M ED 09:58 → M ED INP 14:51 → M PSY 16:09
PROVIDERS: ADMIT Psychiatry & Neurology Psychiatry; ATTEND Psychiatry & Neurology Psychiatry
DX: F20.0 Paranoid schizophrenia (principal); F41.1 Generalized anxiety disorder; F12.159 Cannabis abuse with psychotic disorder, unspecified; F11.11 Opioid abuse, in remission; F41.0 Panic disorder [episodic paroxysmal anxiety]; Z79.899 Other long term (current) drug therapy; Z88.8 Allergy status to other drugs, medicaments and biological substances; F17.290 Nicotine dependence, other tobacco product, uncomplicated; B19.20 Unspecified viral hepatitis C without hepatic coma

== ENCOUNTER 2018-06-01 11:56 | Emergency (ER) | payer OTHER ==
[~2018-06-01] VITALS: Ht 200.7 cm; Wt 86.4 kg
[~2018-06-01 11:56] MED LIST changes: +BISAC5TA PO; +COLA100C5 PO; +DIPH50CA PO; +RISP2TAB32 PO
[2018-06-01] MEDS ORDERED: VYVA50CA4 (12:01)
--- NOTE | 2018-06-01 13:10 | REP ---
Left elbow series: Four views. History: Injury in a fall. Findings: Four views of the left elbow demonstrate normal bones, joints, and soft tissues. No evidence of fracture, subluxation, or joint effusion. Impression: Negative left elbow radiographs. Electronically Signed by Colton Castellanos MD 06/01/2018 10:22 P
[2018-06-01] MEDS ORDERED: IBUP80TA PO (13:22)
[2018-06-01 13:27] VITALS: BP 131/62
== END 2018-06-01 13:40 | disposition home or self-care (01) ==
LOC: M ED 11:56
DX: S50.02XA Contusion of left elbow, initial encounter (principal); W00.9XXA Unspecified fall due to ice and snow, initial encounter; Y92.89 Other specified places as the place of occurrence of the external cause; Y93.9 Activity, unspecified; Y99.9 Unspecified external cause status; Z87.891 Personal history of nicotine dependence; Z79.899 Other long term (current) drug therapy; Z88.8 Allergy status to other drugs, medicaments and biological substances

== ENCOUNTER 2018-06-27 20:26 | Emergency (ER) | payer OTHER ==
[~2018-06-27] VITALS: Ht 200.7 cm; Wt 85.5 kg
[~2018-06-27 20:26] MED LIST changes: +IBUP80TA PO; +VYVA50CA4
[2018-06-27 21:00] LABS: HEMOGLOBIN 13.7 g/dl (13.5-17.5); MEAN CORPUSCULAR HEMOGLOBIN 31.7 pg (27.0-33.0); MEAN CORPUSCULAR HGB CONC 32.6 g/dl (32.0-36.5); MEAN CORPUSCULAR VOLUME 97.2 fl (80.0-96.0); PLATELET COUNT, AUTOMATED 160 10^3/uL (150-450); RED BLOOD COUNT 4.32 10^6/uL (4.30-6.10); WHITE BLOOD COUNT 6.5 10^3/uL (4.0-10.0)
[2018-06-27 21:24] LABS: ACETAMINOPHEN LEVEL < 2.0 UG/ML (10.0-30.0); ALBUMIN 3.6 GM/DL (3.2-5.2); ALT/SGPT 65 U/L (12-78); BILIRUBIN,DIRECT 0.1 MG/DL (0.0-0.2); BILIRUBIN,TOTAL 0.4 MG/DL (0.2-1.0); BLOOD UREA NITROGEN 12 MG/DL (7-18); CALCIUM LEVEL 8.3 MG/DL (8.5-10.1); CARBON DIOXIDE LEVEL 31 MEQ/L (21-32); CHLORIDE LEVEL 106 MEQ/L (98-107); CREATININE FOR GFR 0.95 MG/DL (0.70-1.30); ETHYL ALCOHOL (ETHANOL) < 0.003 % (0.000-0.010); GLOMERULAR FILTRATION RATE > 60.0 (>60); GLUCOSE, FASTING 98 MG/DL (70-100); POTASSIUM SERUM 3.6 MEQ/L (3.5-5.1); SALICYLATE LEVEL < 1.7 MG/DL (5.0-30.0); SODIUM LEVEL 144 MEQ/L (136-145); THYROID STIMULATING HORMONE 0.488 uIU/ML (0.358-3.740); TOTAL PROTEIN 6.7 GM/DL (6.4-8.2)
[2018-06-27 21:25] LABS: AMPHETAMINES LEVEL URINE NEGATIVE (NEGATIVE); BARBITURATES URINE NEGATIVE (NEGATIVE); BENZODIAZEPINES URINE NEGATIVE (NEGATIVE); CANNABINOIDS URINE NEGATIVE (NEGATIVE); COCAINE METABOLITE URINE NEGATIVE (NEGATIVE); METHADONE URINE NEGATIVE (NEGATIVE); OPIATES URINE NEGATIVE (NEGATIVE); PHENCYCLIDINE URINE NEGATIVE (NEGATIVE)
[2018-06-27 22:49] VITALS: BP 136/73
== END 2018-06-27 22:58 | disposition home or self-care (01) ==
LOC: M ED 20:26
DX: F20.9 Schizophrenia, unspecified (principal); F32.9 Major depressive disorder, single episode, unspecified; Z86.19 Personal history of other infectious and parasitic diseases; F19.10 Other psychoactive substance abuse, uncomplicated; F90.9 Attention-deficit hyperactivity disorder, unspecified type; F41.9 Anxiety disorder, unspecified; F12.10 Cannabis abuse, uncomplicated; Z79.899 Other long term (current) drug therapy; Z88.8 Allergy status to other drugs, medicaments and biological substances
CPT/HCPCS: 80048; 80076; 80307; 84443; 85027; 99284; G0480

== ENCOUNTER 2018-07-03 12:23 | Emergency (ER) | payer OTHER ==
[~2018-07-03] VITALS: Ht 193 cm; Wt 81.8 kg
[2018-07-03 12:24] VITALS: BP 136/75
[2018-07-03] MEDS ORDERED: MELO15TA28 (12:49)
[2018-07-03] MEDS ORDERED: NICO4GUM31 (12:49)
== END 2018-07-03 14:18 | disposition left against medical advice (07) ==
LOC: M ED 12:23
DX: Z53.21 Procedure and treatment not carried out due to patient leaving prior to being seen by health care provider (principal)

== ENCOUNTER 2019-07-28 21:40 | Emergency (ER) | payer MEDICAID, OTHER ==
[~2019-07-28] VITALS: Ht 198.1 cm; Wt 96.8 kg
[~2019-07-28 21:40] MED LIST changes: +HYDR1TAB33 PO; -HYDRO50TAB PO; +MELO15TA28; +NICO4GUM31; +TRAZ1TAB10 PO; -TRAZO50TA PO
[2019-07-28 21:41] VITALS: BP 140/102
[2019-07-29 00:13] LABS: BASO # 0.1 10^3/uL (0.0-0.2); BASO % 0.8 % (0.0-1.0); EOS % 0.3 % (0.0-3.0); HEMATOCRIT 51.6 % (42.0-52.0); LYMPH # 1.2 10^3/uL (1.5-5.0); LYMPH % 12.7 % (24.0-44.0); MEAN CORPUSCULAR HEMOGLOBIN 32.8 pg (27.0-33.0); MEAN CORPUSCULAR HGB CONC 34.9 g/dl (32.0-36.5); MONO # 0.8 10^3/uL (0.0-0.8); MONO % 8.4 % (0.0-5.0); NEUTROPHILS # 7.2 10^3/uL (1.5-8.5); PLATELET COUNT, AUTOMATED 186 10^3/uL (150-450); RED BLOOD COUNT 5.49 10^6/uL (4.30-6.10); WHITE BLOOD COUNT 9.3 10^3/uL (4.0-10.0)
[2019-07-29 00:40] LABS: AMPHETAMINES LEVEL URINE NEGATIVE (NEGATIVE); BARBITURATES URINE NEGATIVE (NEGATIVE); BENZODIAZEPINES URINE NEGATIVE (NEGATIVE); CANNABINOIDS URINE POSITIVE (NEGATIVE); COCAINE METABOLITE URINE NEGATIVE (NEGATIVE); METHADONE URINE NEGATIVE (NEGATIVE); OPIATES URINE NEGATIVE (NEGATIVE); PHENCYCLIDINE URINE NEGATIVE (NEGATIVE)
[2019-07-29 00:41] LABS: ACETAMINOPHEN LEVEL < 2.0 UG/ML (10.0-30.0); ALBUMIN 4.3 GM/DL (3.2-5.2); ALT/SGPT 67 U/L (12-78); BILIRUBIN,DIRECT 0.2 MG/DL (0.0-0.2); BILIRUBIN,TOTAL 0.6 MG/DL (0.2-1.0); BLOOD UREA NITROGEN 24 MG/DL (7-18); CALCIUM LEVEL 9.4 MG/DL (8.5-10.1); CARBON DIOXIDE LEVEL 27 MEQ/L (21-32); CHLORIDE LEVEL 107 MEQ/L (98-107); ETHYL ALCOHOL (ETHANOL) < 0.003 % (0.000-0.010); GLOMERULAR FILTRATION RATE > 60.0 (>60); GLUCOSE, FASTING 115 MG/DL (70-100); POTASSIUM SERUM 3.9 MEQ/L (3.5-5.1); SALICYLATE LEVEL < 1.7 MG/DL (5.0-30.0); SODIUM LEVEL 138 MEQ/L (136-145); THYROID STIMULATING HORMONE 0.466 uIU/ML (0.358-3.740)
--- NOTE | 2019-07-29 10:13 | REP ---
RIGHT FOOT, FOUR VIEWS: There is no evidence of an acute fracture, dislocation or intrinsic bone disease. IMPRESSION: No fracture or dislocation. Electronically Signed by Juan Francisco Last MD 07/29/2019 11:02 A
--- NOTE | 2019-07-29 10:13 | REP ---
RIGHT ANKLE, FOUR VIEWS: There is no evidence of an acute fracture, dislocation or intrinsic bone disease. A bone island is seen in the talus. Ankle mortise is anatomic. IMPRESSION: No fracture or dislocation. Electronically Signed by Juan Francisco Last MD 07/29/2019 11:01 A
== END 2019-07-29 00:16 | disposition left against medical advice (07) ==
LOC: M ED 21:40
DX: M25.571 Pain in right ankle and joints of right foot (principal); F20.9 Schizophrenia, unspecified; Z79.899 Other long term (current) drug therapy
CPT/HCPCS: 73610; 73630; 80048; 80076; 80307; 84443; 85025; 99284; G0480

== ENCOUNTER 2019-08-24 15:39 | Emergency (ER) | payer MEDICAID ==
[~2019-08-24] VITALS: Ht 198.1 cm; Wt 98.0 kg
[2019-08-24] MEDS ORDERED: ACETAMINOPHEN 325 MG TAB PO ONE (16:15)
[2019-08-24 16:19] LABS: HEMATOCRIT 51.1 % (42.0-52.0); HEMOGLOBIN 17.1 g/dl (13.5-17.5); MEAN CORPUSCULAR HEMOGLOBIN 31.7 pg (27.0-33.0); MEAN CORPUSCULAR HGB CONC 33.5 g/dl (32.0-36.5); MEAN CORPUSCULAR VOLUME 94.6 fl (80.0-96.0); PLATELET COUNT, AUTOMATED 146 10^3/uL (150-450); WHITE BLOOD COUNT 5.1 10^3/uL (4.0-10.0)
[2019-08-24 16:46] LABS: AMPHETAMINES LEVEL URINE NEGATIVE (NEGATIVE); BARBITURATES URINE NEGATIVE (NEGATIVE); BENZODIAZEPINES URINE NEGATIVE (NEGATIVE); CANNABINOIDS URINE NEGATIVE (NEGATIVE); COCAINE METABOLITE URINE NEGATIVE (NEGATIVE); METHADONE URINE NEGATIVE (NEGATIVE); OPIATES URINE NEGATIVE (NEGATIVE); PHENCYCLIDINE URINE NEGATIVE (NEGATIVE)
[2019-08-24] MEDS ORDERED: KETOROLAC TROMETHAMINE 10 MG TAB PO ONE (17:00)
[2019-08-24 17:01] LABS: ACETAMINOPHEN LEVEL < 2.0 UG/ML (10.0-30.0); ALT/SGPT 80 U/L (12-78); BILIRUBIN,DIRECT 0.2 MG/DL (0.0-0.2); BILIRUBIN,TOTAL 0.5 MG/DL (0.2-1.0); BLOOD UREA NITROGEN 10 MG/DL (7-18); CALCIUM LEVEL 8.5 MG/DL (8.5-10.1); CARBON DIOXIDE LEVEL 26 MEQ/L (21-32); CHLORIDE LEVEL 108 MEQ/L (98-107); CREATININE FOR GFR 0.97 MG/DL (0.70-1.30); ETHYL ALCOHOL (ETHANOL) < 0.003 % (0.000-0.010); GLOMERULAR FILTRATION RATE > 60.0 (>60); GLUCOSE, FASTING 152 MG/DL (70-100); POTASSIUM SERUM 3.6 MEQ/L (3.5-5.1); SALICYLATE LEVEL < 1.7 MG/DL (5.0-30.0); SODIUM LEVEL 142 MEQ/L (136-145); THYROID STIMULATING HORMONE 0.288 uIU/ML (0.358-3.740); TOTAL PROTEIN 7.5 GM/DL (6.4-8.2)
[2019-08-24 17:32] VITALS: BP 142/82
--- NOTE | 2019-08-24 22:55 | ECGEPIP ---
[facility] - ED Test Date: 2019-08-24 Pat Name: KYAW QUIÑONES Department: Room: - Gender: Male Gis Specialist: Lisa : 1980 Requested By: Astrid Buckley Order Number: [id number] Reading MD: Fidencio Sepulveda Measurements Intervals [place] Rate: 105 P: 150 MS: 158 QRS: 144 QRSD: 108 T: 147 QT: 314 QTc: 416 Interpretive Statements SINUS TACHYCARDIA ARM LEADS REVERSED UNACCEPTABLE TRACING FOR INTERPRETATION Electronically Signed on 08-24-2019 22:54:51 EDT by Fidencio Sepulveda
== END 2019-08-24 18:14 | disposition home or self-care (01) ==
LOC: M ED 15:39
DX: F20.9 Schizophrenia, unspecified (principal); B19.20 Unspecified viral hepatitis C without hepatic coma; F17.290 Nicotine dependence, other tobacco product, uncomplicated; F12.10 Cannabis abuse, uncomplicated
CPT/HCPCS: 36415; 80048; 80076; 80307; 84443; 85027; 93005; 99284; G0480

== ENCOUNTER 2019-11-08 13:41 | Inpatient (IN) | payer MEDICAID, OTHER ==
[~2019-11-08] VITALS: Ht 198.1 cm; Wt 94.2 kg
[~2019-11-08 13:41] MED LIST changes: +NICO-267; -NICO4GUM31
[2019-11-08] MEDS ORDERED: ATOM40CA9 PO (13:47)
[2019-11-08] MEDS ORDERED: RISP1TAB3 PO (13:47)
[2019-11-08 14:01] LABS: HEMATOCRIT 53.2 % (42.0-52.0); MEAN CORPUSCULAR HEMOGLOBIN 30.8 pg (27.0-33.0); MEAN CORPUSCULAR VOLUME 96.4 fl (80.0-96.0); PLATELET COUNT, AUTOMATED 190 10^3/uL (150-450); RED BLOOD COUNT 5.52 10^6/uL (4.30-6.10); WHITE BLOOD COUNT 6.6 10^3/uL (4.0-10.0)
[2019-11-08 14:46] LABS: ACETAMINOPHEN LEVEL < 2.0 UG/ML (10.0-30.0); ALBUMIN 4.1 GM/DL (3.2-5.2); ALT/SGPT 50 U/L (12-78); AMPHETAMINES LEVEL URINE NEGATIVE (NEGATIVE); BARBITURATES URINE NEGATIVE (NEGATIVE); BENZODIAZEPINES URINE NEGATIVE (NEGATIVE); BILIRUBIN,DIRECT 0.1 MG/DL (0.0-0.2); BILIRUBIN,TOTAL 0.4 MG/DL (0.2-1.0); BLOOD UREA NITROGEN 5 MG/DL (7-18); CANNABINOIDS URINE POSITIVE (NEGATIVE); CARBON DIOXIDE LEVEL 30 MEQ/L (21-32); CHLORIDE LEVEL 107 MEQ/L (98-107); COCAINE METABOLITE URINE NEGATIVE (NEGATIVE); CREATININE FOR GFR 0.95 MG/DL (0.70-1.30); ETHYL ALCOHOL (ETHANOL) < 0.003 % (0.000-0.010); GLOMERULAR FILTRATION RATE > 60.0 (>60); GLUCOSE, FASTING 111 MG/DL (70-100); METHADONE URINE NEGATIVE (NEGATIVE); OPIATES URINE NEGATIVE (NEGATIVE); PHENCYCLIDINE URINE NEGATIVE (NEGATIVE); POTASSIUM SERUM 4.2 MEQ/L (3.5-5.1); SALICYLATE LEVEL < 1.7 MG/DL (5.0-30.0); SODIUM LEVEL 141 MEQ/L (136-145); THYROID STIMULATING HORMONE 0.222 uIU/ML (0.358-3.740); TOTAL PROTEIN 8.2 GM/DL (6.4-8.2)
[2019-11-08] MEDS ORDERED: MED REC COMMENT (15:33)
[2019-11-09] MEDS ORDERED: MAALOX 30 ML SUSP *UDC PO PRN (00:15)
[2019-11-09] MEDS ORDERED: OLANZapine ORAL DISINTEGRATING TAB 5MG PO PRN (00:15)
[2019-11-09] MEDS ORDERED: NICOTINE 21MG/24HR 1 EA TRANSDERMAL TD PRN (00:15)
[2019-11-09] MEDS ORDERED: MOM 30ML SUSPENSION UDC PO PRN (00:15)
[2019-11-09 02:14] VITALS: BP 156/83
[2019-11-09 06:35] VITALS: BP_SYST 129; BP_SYST 137; BP_DIAS 84; BP_DIAS 87
--- NOTE | 2019-11-09 07:30 | MHHPEPDOC ---
[facility] History & Physical History and Physical DATE OF ADMISSION: Nov 09, 2019 at 00:13 HPI: Kyaw presents after being brought in psychotic. He reports that he is going through a lawsuit. He previously requested to take Vyvanse due to hyperactivity and Strattera is not working well for him. Past psych:unable to determine Sochx/fmhx: unable to determine SOCIAL HISTORY - SMOKING: Kyaw admits to smoking one pack of cigarettes daily. Objective Behavior: Psychotic. Unable to be redirected. Speech: Hyper-verbal. Judgement: Poor. Insight: Poor. Assessment F31.2 Bipolar disorder, current episode manic severe with psychotic features Plan Start Abilify nightly. Discontinue Strattera and nicotine as discussed. Well need to evaluate treatment. Priorities are altered thoughts. Estimated length of stay is 5-7 days. Vital Signs Vital Signs Date Time Temp Pulse Resp B/P (MAP) Pulse Ox O2 Delivery O2 Flow Rate FiO2 11/09/19 06:35 97.0 59 12 137/87 (104) Room Air 11/09/19 02:14 100 Laboratory Data 24H Labs Laboratory Tests 2 11/08/19 13:51: Nucleated Red Blood Cells % (auto) 0.0, Anion Gap 4L, Glomerular Filtration Rate > 60.0, Calcium Level 9.0, Total Bilirubin 0.4, Direct Bilirubin 0.1, Aspartate Amino Transf (AST/SGOT) 42H, Alanine Aminotransferase (ALT/SGPT) 50, Alkaline Phosphatase 75, Total Protein 8.2, Albumin 4.1, Albumin/Globulin Ratio 1.0, Thyroid Stimulating Hormone (TSH) 0.222L, Salicylates Level < 1.7L, Urine Opiates Screen NEGATIVE, Urine Methadone Screen NEGATIVE, Acetaminophen Level < 2.0L, Urine Barbiturates Screen NEGATIVE, Urine Phencyclidine Screen NEGATIVE, Urine Amphetamines Screen NEGATIVE, Urine Benzodiazepines Screen NEGATIVE, Urine Cocaine Metabolite Screen NEGATIVE, Urine Cannabinoids Screen POSITIVEH, Ethyl Alcohol Level < 0.003 CBC/BMP Laboratory Tests 11/08/19 13:51 Medications Scheduled Atomoxetine HCl (Atomoxetine HCl) 40 Mg Capsule, 40 MG PO DAILY, (Reported) Risperidone (Risperidone) 1 Mg Tablet, 1 MG PO QHS, (Reported) Miscellaneous Medications [Med Rec Comment] , (Reported) VERIFIED MEDICATIONS WITH PHARMACY Allergies Coded Allergies: No Known Allergies (Unverified , 07/28/19) KYAW YOUNG DO Nov 09, 2019 07:30
[2019-11-09] MEDS ORDERED: ATOMOXETINE HCL 40 MG CAP (STRATTERA) PO SCH (09:00)
[2019-11-09] MEDS: NICOTINE POLACRILEX 2 MG GUM PO PRN ×4 (10:16→20:38)
--- NOTE | 2019-11-09 15:39 | HPEPDOC ---
General Date of Admission Nov 09, 2019 at 00:13 Date of Service: Nov 09, 2019 Chief Complaint The patient is a 39-year-old male admitted with a reason for visit of Unspecified Psychotic Disorder. Source: Patient History of Present Illness 39 year old male with PMH of ADHD, schizophrenia/ delusional disorder, substance use disorder was admitted to the [facility] for psychosis. Today he tell me that he has cases in the court against the police who he says are following him , have drones around the [place] house they are constantly monitoring him have beams of light penetrating the ghotra of the house touching his skin which has produced red gilbert on his foot through which they are monitoring him. He then jumps to another topic about not getting his ADHD meds from [facility] and he did not want to take the meds they were giving him as they were making him feel doped and he was having difficulty in managing the papers for his court case. He denied any medical complaints. I am seeing the patient for medical history and physical. The rash on the foot is about 4 cm x 4cm, dry red . He denies any itching. Denies any pain. Home Medications Scheduled Atomoxetine HCl (Atomoxetine HCl) 40 Mg Capsule, 40 MG PO DAILY, (Reported) Risperidone (Risperidone) 1 Mg Tablet, 1 MG PO QHS, (Reported) Miscellaneous Medications [Med Rec Comment] , (Reported) VERIFIED MEDICATIONS WITH PHARMACY Allergies Coded Allergies: No Known Allergies (Unverified , 07/28/19) Past Medical History Medical History ADHD Marihuana use disorder hepatitis C Paranoid schizophrenia Delusional disorder. Substance induced psychotic disorder. HX OF OPOID ADDICTION/HEROIN ADDICTION IN REMISSION SINCE 2012 Surgical History RIGHT ARM TENDON REPAIR 1994 Family History Significant Family History: Cancer (father, now ), Diabetes (mother now ) Social History * Smoker: current smoker Drugs: marijuana A-FIB/CHADSVASC A-FIB History Current/History of A-Fib/PAF?: No Review of Systems Constitutional: Denies: Chills, Fever, Night Sweats Eyes: Denies: Pain, Vision change ENT: Denies: Head Aches, Ear Pain, Dysphagia Skin: Denies: Rash, Lesions, Breakdown Pulmonary: Denies: Dyspnea, Cough Cardiovascular: Denies: Chest Pain, Palpitations, Orthopnea, Paroxysmal Noc. Dyspnea, Lt Headedness Gastrointestinal: Denies: Nausea, Vomiting, Abdominal Pain, Diarrhea Genitourinary: Denies: Dysuria, Frequency, Incontinence, Retention Musculoskeletal: Denies: Neck Pain, Back Pain, Joint Pain, Muscle Pain, Spasms Physical Examination General Exam: Positive: Alert, Cooperative, No Acute Distress Eye Exam: Positive: PERRLA, Conjunctiva & lids normal, EOMI; Negative: Sclera icteric ENT Exam: Positive: Atraumatic, Mucous membr. moist/pink, Pharynx Normal Neck Exam: Positive: Supple; Negative: JVD, thyromegaly Chest Exam: Positive: Clear to auscultation, Normal air movement Heart Exam: Positive: Rate Normal, Regular Rhythm, Normal S1, Normal S2; Negative: Murmurs, Rubs Abdomen Exam: Positive: Normal bowel sounds, Soft; Negative: Tenderness, Hepatospenomegaly Extremity Exam: Positive: Normal pulses; Negative: Clubbing, Cyanosis, Edema Skin Exam: Positive: Rash (on the dorsum of right foot) Neuro Exam: Positive: Normal Gait, Normal Speech, Strength at 5/5 X4 ext, Normal Tone Vital Signs Vital Signs Date Time Temp Pulse Resp B/P (MAP) Pulse Ox O2 Delivery O2 Flow Rate FiO2 11/09/19 06:35 97.0 59 12 137/87 (104) Room Air 11/09/19 02:14 100 Assessment/Plan 39 year old male with PMH of ADHD, schizophrenia/ delusional disorder, substance use disorder was admitted to the [facility] for psychosis. I am seeing the Patient for medical history and physical. Low TSH will check Ft4 and Ft3 Dry Eczematous skin rash on the dorsum of right foot/ fungal will give triamcinolone ointment and ketoconazole cream. Psychosis/Delusional disorder as per psychiatry. Plan / VTE VTE Prophylaxis Ordered?: No JESE ZULETA MD Nov 09, 2019 15:39
[2019-11-09 18:13] VITALS: BP 143/85
[2019-11-09] MEDS: TRIAMCINOLONE ACET 0.1% OINTMENT 15 GM TOP SCH (20:39)
[2019-11-09] MEDS: KETOCONAZOLE 2% CREAM TOP SCH (20:39)
[2019-11-09] MEDS ORDERED: risperiDONE 1 MG TAB PO SCH (21:00)
[2019-11-10 06:36] VITALS: BP 133/80
[2019-11-10] MEDS: NICOTINE POLACRILEX 2 MG GUM PO PRN ×5 (07:14→22:38)
[2019-11-10 07:51] LABS: FREE T3 2.9 PG/ML (2.2-4.0); FREE T4 1.18 NG/DL (0.76-1.46)
[2019-11-10] MEDS: TRIAMCINOLONE ACET 0.1% OINTMENT 15 GM TOP SCH ×2 (09:00→21:00)
[2019-11-10] MEDS: KETOCONAZOLE 2% CREAM TOP SCH ×2 (09:00→21:00)
[2019-11-10 15:46] VITALS: BP 147/80
--- NOTE | 2019-11-10 16:27 | MHIPNPDOC ---
[facility] Progress Note Progress Note DATE OF SERVICE: 11/10/19 HISTORY: As per ED report: "Pt. states he doesn't know why he is here. He then proceeds to talk about people that have been breaking into his apt and have stole his food and urinated on a towl and hung it back up and also left feces in the toilet. He states same people did something(poisoned?) his food because the fresh fruit and vegetables he just bought are now saturated in mold. Pt. talks about the many lawsuits he has against the long-term and other places that he has been([place]). He rambles on about a white van that has been following him and about airport security screener and how 'they' can hear him talking. Pt. states he called [facility] today because he had tele phone appt and because he wants to be back on his ADHD meds. Pt. states he is on probation, is unable to say why, continues to ramble. He denies any current medications, states he use to be on Vivance, bought some two days ago on the street. Admits to marijuana use. He is pleasant during interveiw. He states he has been here before and they wanted him to take meds but he didn't want to." VITAL SIGNS: See below. NEW TEST RESULTS: See below CURRENT MEDICATIONS: See below. MENTAL STATUS EXAMINATION: Patient is a 39-year old male, who is alert, psychotic, wearing hospital clothes, who has very poor eye contact Speech: Is rapid, pressured, tangential, circumstantial. Thought processes including: tangential, circumstantial, incoherent, disorganized Thought content: delusional, psychotic, has paranoid and bizarre delusions, he denies SI/HI Description of associations: loose. Description of abnormal or psychotic thoughts: paranoid and bizarre delusions, . Judgment: poor Insight: poor. Orientation: x 3. Recent and remote memory: impaired due to his psychosis. Attention span and concentration: very easily distracted.. Fund of knowledge: unable to assess, patient is psychotic Mood: manic, elevated, Affect: congruent with mood DIAGNOSES: 1. Bipolar disorder, manic episode with psychosis ASSESSMENT: Patient says he is here to prove that he is not tyrell and he came to the hospital because he knows we have cameras in the hospital, so, everything he does will be recorded and he will be able to use it when he goes to Court so that he can tell everyone he is not "crazy". He says he doesn't talk to his family because they have said he has a mental illness. He has expressed anger against this global technical writer ans some of the staff members say that he said he was going to kill me and Roberto Carlos Brown because he has the delusion that we were going to inject IV medications on him, last year at [facility] and I explained that is not possible at [facility], we don't give IV medications in here but he probably has misconstrued the idea of a TOO that I explained last year to him when he was reluctant to take medications. This time he says he came only for his Ritalin and I explained that he doesn't need to come to the hospital to be treated for ADHD, but, since he is at the Hospital he should try to take other medications for other disorders. He continues to refuse medications MANAGEMENT PLAN: He is not taking medications, he refuses them. It seems hat at a certain point he will have to be TOO'd TIME SPENT: 20 minutes. Vital Signs Vital Signs Date Time Temp Pulse Resp B/P (MAP) Pulse Ox O2 Delivery O2 Flow Rate FiO2 11/10/19 15:46 97.8 58 16 147/80 (102) 11/10/19 10:49 Room Air 11/10/19 06:36 100 Laboratory Data 24H Labs Laboratory Tests 2 11/10/19 07:04: Free Thyroxine 1.18, Free Triiodothyronine 2.9 Current Medications Current Medications Medications (Trade) Dose Ordered Sig/Ciarra Route PRN Reason Start Time Stop Time Status Last Admin Dose Admin Acetaminophen (Tylenol Tab) 650 mg Q6HP PRN PO HEADACHE or DISCOMFORT 11/09/19 00:15 Al Hydrox/Mg Hydrox/Simethicone (Mylanta) 30 ml Q4HP PRN PO HEARTBURN/INDIGESTION 11/09/19 00:15 Aripiprazole (AbiLIFY) 5 mg QHS PO 11/09/19 21:00 Atomoxetine HCl (Strattera (Atomoxetine)) 40 mg DAILY PO 11/09/19 09:00 11/09/19 09:58 DC Home Med (Med Rec Complete!) ASDIRECTED XX 11/08/19 15:45 11/08/19 15:35 DC Ketoconazole (Nizoral) ON THE DORSUM OF THE RI... BID TOP 11/09/19 21:00 Magnesium Hydroxide (Milk Of Magnesia) 30 ml DAILYPRN PRN PO CONSTIPATION 11/09/19 00:15 Nicotine (Nicoderm Cq 21mg) 1 patch DAILY PRN TD Nicotine withdrawal 11/09/19 00:15 Nicotine (Nicorette) 4 mg Q2HP PRN PO NICOTINE WITHDRAWAL 11/09/19 10:00 11/10/19 10:40 Olanzapine (ZyPREXA ZYDIS) 5 mg Q4HP PRN PO AGITATION 11/09/19 00:15 Risperidone (RisperDAL) 1 mg QHS PO 11/09/19 21:00 11/09/19 09:59 DC Triamcinolone Acetonide (Kenalog 0.1% Ointment) On the dorsum of right foot. BID TOP 11/09/19 21:00 Allergies Coded Allergies: No Known Allergies (Unverified , 07/28/19) BEN GRAHAM MD Nov 10, 2019 16:17
[2019-11-11 06:39] VITALS: BP 162/77
[2019-11-11] MEDS: NICOTINE POLACRILEX 2 MG GUM PO PRN ×4 (07:14→20:58)
[2019-11-11] MEDS: KETOCONAZOLE 2% CREAM TOP SCH ×2 (09:00→21:00)
[2019-11-11] MEDS: TRIAMCINOLONE ACET 0.1% OINTMENT 15 GM TOP SCH ×2 (09:00→21:00)
[2019-11-11 16:29] VITALS: BP 129/74
--- NOTE | 2019-11-11 20:28 | MHIPNPDOC ---
[facility] Progress Note Progress Note DATE OF SERVICE: 11/11/19 HISTORY: As per ED report: "Pt. states he doesn't know why he is here. He then proceeds to talk about people that have been breaking into his apt and have stole his food and urinated on a towl and hung it back up and also left feces in the toilet. He states same people did something(poisoned?) his food because the fresh fruit and vegetables he just bought are now saturated in mold. Pt. talks about the many lawsuits he has against the penitentiary and other places that he has been([place]). He rambles on about a white van that has been following him and about security chief museum and how 'they' can hear him talking. Pt. states he called [facility] today because he had tele phone appt and because he wants to be back on his ADHD meds. Pt. states he is on probation, is unable to say why, continues to ramble. He denies any current medications, states he use to be on Vivance, bought some two days ago on the street. Admits to marijuana use. He is pleasant during interveiw. He states he has been here before and they wanted him to take meds but he didn't want to." VITAL SIGNS: See below. NEW TEST RESULTS: See below CURRENT MEDICATIONS: See below. MENTAL STATUS EXAMINATION: Patient is a 39-year old male, who is alert, psychotic, wearing hospital clothes, improved eye contact Speech: Is rapid, pressured, tangential, circumstantial. Thought processes including: tangential, circumstantial, incoherent, disorganized Thought content: delusional, psychotic, has paranoid and bizarre delusions, he denies SI/HI Description of associations: loose. Description of abnormal or psychotic thoughts: He still reports thought delusions Judgment: poor Insight: poor. Orientation: x 3. Recent and remote memory: impaired due to his psychosis. Attention span and concentration: he is able to focus on a toic just for a short period of time Fund of knowledge: unable to assess, patient is psychotic Mood: manic, elevated, irritable Affect: congruent with mood DIAGNOSES: 1. Bipolar disorder, manic episode with psychosis ASSESSMENT: The patient continues to be psychotic and non compliant with medications. He says he will need to talk to the Java Manager tomorrow because he will have to go to Court. He says he will rosie cristina because he should have never been brought to the Hospital, he says he doesn't know why the Hospital picked him up, who called the Police officers, he says he doesn't have to take medications because he is not ill. The patient [facility] with other [facility], smi ling and joking but when it comes to talk about his mental health problems, he becomes easily irritated. MANAGEMENT PLAN: He continues to refuse medications, he becomes irritated when addressing his mental health problems. If he cntinues to refuse, he will have to be TOO'd. TIME SPENT: 20 minutes. Vital Signs Vital Signs Date Time Temp Pulse Resp B/P (MAP) Pulse Ox O2 Delivery O2 Flow Rate FiO2 11/11/19 16:29 98.1 66 16 129/74 (92) 11/11/19 10:07 Room Air 11/11/19 06:39 100 Current Medications Current Medications Medications (Trade) Dose Ordered Sig/Ciarra Route PRN Reason Start Time Stop Time Status Last Admin Dose Admin Acetaminophen (Tylenol Tab) 650 mg Q6HP PRN PO HEADACHE or DISCOMFORT 11/09/19 00:15 Al Hydrox/Mg Hydrox/Simethicone (Mylanta) 30 ml Q4HP PRN PO HEARTBURN/INDIGESTION 11/09/19 00:15 Aripiprazole (AbiLIFY) 5 mg QHS PO 11/09/19 21:00 Atomoxetine HCl (Strattera (Atomoxetine)) 40 mg DAILY PO 11/09/19 09:00 11/09/19 09:58 DC Home Med (Med Rec Complete!) ASDIRECTED XX 11/08/19 15:45 11/08/19 15:35 DC Ketoconazole (Nizoral) ON THE DORSUM OF THE RI... BID TOP 11/09/19 21:00 Magnesium Hydroxide (Milk Of Magnesia) 30 ml DAILYPRN PRN PO CONSTIPATION 11/09/19 00:15 Nicotine (Nicoderm Cq 21mg) 1 patch DAILY PRN TD Nicotine withdrawal 11/09/19 00:15 Nicotine (Nicorette) 4 mg Q2HP PRN PO NICOTINE WITHDRAWAL 11/09/19 10:00 11/11/19 16:12 Olanzapine (ZyPREXA ZYDIS) 5 mg Q4HP PRN PO AGITATION 11/09/19 00:15 Risperidone (RisperDAL) 1 mg QHS PO 11/09/19 21:00 11/09/19 09:59 DC Triamcinolone Acetonide (Kenalog 0.1% Ointment) On the dorsum of right foot. BID TOP 11/09/19 21:00 Allergies Coded Allergies: No Known Allergies (Unverified , 07/28/19) BEN GRAHAM MD Nov 11, 2019 20:28
[2019-11-11] MEDS: ACETAMINOPHEN TAB 650MG DOSE (2X325MG) PO PRN (20:58)
[2019-11-12 06:14] VITALS: BP 140/77
[2019-11-12] MEDS: NICOTINE POLACRILEX 2 MG GUM PO PRN ×5 (06:20→22:23)
[2019-11-12] MEDS: ACETAMINOPHEN TAB 650MG DOSE (2X325MG) PO PRN ×3 (06:23→21:48)
--- NOTE | 2019-11-12 07:49 | MHIPNPDOC ---
[facility] Progress Note Progress Note DATE OF SERVICE: 11/12/19 HPI: Kyaw presents today for concerns regarding his follow-up visit. Provider attempted to meet with patient, however he was highly distorted and asked the pr ovider to call a newspaper carrier about various court cases. Kyaw has been bizarre and paranoid for the entire weekend and unable to obtain a reasonable interaction. Objective Behavior: Tangential. Bizarre. Fair hygiene. Grossly psychotic. Thought Form: Appears alert and orientated. Judgement: Poor. Insight: Poor. 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 Vital Signs Vital Signs Date Time Temp Pulse Resp B/P (MAP) Pulse Ox O2 Delivery O2 Flow Rate FiO2 11/12/19 06:14 97.4 55 18 140/77 (98) 100 Room Air Current Medications Current Medications Medications (Trade) Dose Ordered Sig/Ciarra Route PRN Reason Start Time Stop Time Status Last Admin Dose Admin Acetaminophen (Tylenol Tab) 650 mg Q6HP PRN PO HEADACHE or DISCOMFORT 11/09/19 00:15 11/12/19 06:23 Al Hydrox/Mg Hydrox/Simethicone (Mylanta) 30 ml Q4HP PRN PO HEARTBURN/INDIGESTION 11/09/19 00:15 Aripiprazole (AbiLIFY) 5 mg QHS PO 11/09/19 21:00 Atomoxetine HCl (Strattera (Atomoxetine)) 40 mg DAILY PO 11/09/19 09:00 11/09/19 09:58 DC Home Med (Med Rec Complete!) ASDIRECTED XX 11/08/19 15:45 11/08/19 15:35 DC Ketoconazole (Nizoral) ON THE DORSUM OF THE RI... BID TOP 11/09/19 21:00 Magnesium Hydroxide (Milk Of Magnesia) 30 ml DAILYPRN PRN PO CONSTIPATION 11/09/19 00:15 Nicotine (Nicoderm Cq 21mg) 1 patch DAILY PRN TD Nicotine withdrawal 11/09/19 00:15 Nicotine (Nicorette) 4 mg Q2HP PRN PO NICOTINE WITHDRAWAL 11/09/19 10:00 11/12/19 06:20 Olanzapine (ZyPREXA ZYDIS) 5 mg Q4HP PRN PO AGITATION 11/09/19 00:15 Risperidone (RisperDAL) 1 mg QHS PO 11/09/19 21:00 11/09/19 09:59 DC Triamcinolone Acetonide (Kenalog 0.1% Ointment) On the dorsum of right foot. BID TOP 11/09/19 21:00 Allergies Coded Allergies: No Known Allergies (Unverified , 07/28/19) KYAW YOUNG DO Nov 12, 2019 07:49
[2019-11-12] MEDS: KETOCONAZOLE 2% CREAM TOP SCH ×2 (09:00→20:17)
[2019-11-12] MEDS: TRIAMCINOLONE ACET 0.1% OINTMENT 15 GM TOP SCH ×2 (09:00→20:16)
[2019-11-12 16:15] VITALS: BP 140/70
[2019-11-12] MEDS: IBUPROFEN 400 MG TAB PO PRN (22:22)
[2019-11-13 06:39] VITALS: BP 135/78
[2019-11-13] MEDS: IBUPROFEN 400 MG TAB PO PRN ×2 (06:44→14:10)
[2019-11-13] MEDS: NICOTINE POLACRILEX 2 MG GUM PO PRN ×5 (06:44→20:20)
--- NOTE | 2019-11-13 07:58 | MHIPNPDOC ---
[facility] Progress Note Progress Note DATE OF SERVICE: 11/13/19 HPI: Kyaw presents today for a follow-up visit. He mentions information about living at [facility] and being diagnosed with ADHD where they would put him to sleep. Kyaw states he felt as if the [facility] facility had access to every part of him and were able to do whatever they wanted. He reports last night he woke up to the sounds of his door opening, which he classifies as normal for him. Kyaw mentions he is on probation right now under officer Leonel Brandt. Objective Behavior: Pleasant. Has not been taking any medications. Cooperative with good eye contact. Engaged. Thought Form: Psychotic and tangential. Fixated on his delusions. Thought Content: No thoughts of self harm. No evidence of aggressive or homicidal ideation. No evidence of delusions. No evidence of suicidal ideation. Judgement: Poor. Insight: Poor. Assessment F29 Unspecified psychosis not due to a substance or known physiological condition Plan Continue to offer Abilify, however, his chances of having a treatment over objection successful are somewhat dim as he has not engaged in any dangerous behavior and has no homicidal ideation towards those hes paranoid. Will continue to observe and attempt to convince Kyaw to try medication as it appears likely that his imminence of threat is hard to ascertain. Will try to get more collateral resources. Vital Signs Vital Signs Date Time Temp Pulse Resp B/P (MAP) Pulse Ox O2 Delivery O2 Flow Rate FiO2 11/13/19 06:39 97.6 52 12 135/78 (97) Room Air 11/12/19 06:14 100 Current Medications Current Medications Medications (Trade) Dose Ordered Sig/Ciarra Route PRN Reason Start Time Stop Time Status Last Admin Dose Admin Acetaminophen (Tylenol Tab) 650 mg Q6HP PRN PO HEADACHE or DISCOMFORT 11/09/19 00:15 11/12/19 21:48 Al Hydrox/Mg Hydrox/Simethicone (Mylanta) 30 ml Q4HP PRN PO HEARTBURN/INDIGESTION 11/09/19 00:15 Aripiprazole (AbiLIFY) 5 mg QHS PO 11/09/19 21:00 Atomoxetine HCl (Strattera (Atomoxetine)) 40 mg DAILY PO 11/09/19 09:00 11/09/19 09:58 DC Home Med (Med Rec Complete!) ASDIRECTED XX 7/16/20 15:45 11/08/19 15:35 DC Ibuprofen (Advil) 400 mg Q6HP PRN PO PAIN 11/12/19 21:45 11/13/19 06:44 Ketoconazole (Nizoral) ON THE DORSUM OF THE RI... BID TOP 11/09/19 21:00 Magnesium Hydroxide (Milk Of Magnesia) 30 ml DAILYPRN PRN PO CONSTIPATION 11/09/19 00:15 11/12/19 22:22 Nicotine (Nicoderm Cq 21mg) 1 patch DAILY PRN TD Nicotine withdrawal 11/09/19 00:15 Nicotine (Nicorette) 4 mg Q2HP PRN PO NICOTINE WITHDRAWAL 11/09/19 10:00 11/13/19 06:44 Olanzapine (ZyPREXA ZYDIS) 5 mg Q4HP PRN PO AGITATION 11/09/19 00:15 Risperidone (RisperDAL) 1 mg QHS PO 11/09/19 21:00 11/09/19 09:59 DC Triamcinolone Acetonide (Kenalog 0.1% Ointment) On the dorsum of right foot. BID TOP 11/09/19 21:00 Allergies Coded Allergies: No Known Allergies (Unverified , 07/28/19) KYAW YOUNG DO Nov 13, 2019 07:58
[2019-11-13] MEDS: KETOCONAZOLE 2% CREAM TOP SCH ×2 (09:00→20:24)
[2019-11-13] MEDS: TRIAMCINOLONE ACET 0.1% OINTMENT 15 GM TOP SCH ×2 (09:00→20:24)
[2019-11-13 16:16] VITALS: BP 134/75
[2019-11-13] MEDS: ACETAMINOPHEN TAB 650MG DOSE (2X325MG) PO PRN (20:20)
[2019-11-14 06:44] VITALS: BP 123/79
[2019-11-14] MEDS: NICOTINE POLACRILEX 2 MG GUM PO PRN ×3 (08:24→21:00)
[2019-11-14] MEDS: TRIAMCINOLONE ACET 0.1% OINTMENT 15 GM TOP SCH ×2 (08:25→22:12)
[2019-11-14] MEDS: KETOCONAZOLE 2% CREAM TOP SCH ×2 (08:25→22:12)
--- NOTE | 2019-11-14 09:16 | MHIPNPDOC ---
[facility] Progress Note Progress Note DATE OF SERVICE: 11/14/19 HPI: Kyaw presents today for a follow-up visit. Attempted to meet with patient, however he was in groups throughout the day. Kyaw is still bizarre, but pleas ant. He generally doesnt engage in much discussion other than about the various court cases; signed releases for a afloat cryptologic manager and a service officer will gather inaudible inaudible to better understand. Objective Appearance: Well groomed. Appears to be stated age. Well nourished. Behavior: Engaged. In groups throughout the day, but observed. Cooperative with good eye contact. Pleasant. Speech: Normal volume. Normal rate. Spontaneous and Fluid. Thought Content: No evidence of delusions. No evidence of suicidal ideation. Distorted. No thoughts of self harm. No evidence of aggressive or homicidal ideation. Assessment F29 Unspecified psychosis not due to a substance or known physiological condition Plan Continue to observe, will likely be unable to obtain TOO. Will continue to try to convince Kyaw to take medications. Vital Signs Vital Signs Date Time Temp Pulse Resp B/P (MAP) Pulse Ox O2 Delivery O2 Flow Rate FiO2 11/14/19 06:44 97.0 56 12 123/79 (94) Room Air 11/13/19 16:16 18 Current Medications Current Medications Medications (Trade) Dose Ordered Sig/Ciarra Route PRN Reason Start Time Stop Time Status Last Admin Dose Admin Acetaminophen (Tylenol Tab) 650 mg Q6HP PRN PO HEADACHE or DISCOMFORT 11/09/19 00:15 11/13/19 20:20 Al Hydrox/Mg Hydrox/Simethicone (Mylanta) 30 ml Q4HP PRN PO HEARTBURN/INDIGESTION 11/09/19 00:15 Aripiprazole (AbiLIFY) 5 mg QHS PO 11/09/19 21:00 Atomoxetine HCl (Strattera (Atomoxetine)) 40 mg DAILY PO 11/09/19 09:00 11/09/19 09:58 DC Home Med (Med Rec Complete!) ASDIRECTED XX 11/08/19 15:45 11/08/19 15:35 DC Ibuprofen (Advil) 400 mg Q6HP PRN PO PAIN 11/12/19 21:45 11/13/19 14:10 Ketoconazole (Nizoral) ON THE DORSUM OF THE RI... BID TOP 11/09/19 21:00 Magnesium Hydroxide (Milk Of Magnesia) 30 ml DAILYPRN PRN PO CONSTIPATION 11/09/19 00:15 11/12/19 22:22 Nicotine (Nicoderm Cq 21mg) 1 patch DAILY PRN TD Nicotine withdrawal 11/09/19 00:15 Nicotine (Nicorette) 4 mg Q2HP PRN PO NICOTINE WITHDRAWAL 11/09/19 10:00 11/14/19 08:24 Olanzapine (ZyPREXA ZYDIS) 5 mg Q4HP PRN PO AGITATION 11/09/19 00:15 Risperidone (RisperDAL) 1 mg QHS PO 11/09/19 21:00 11/09/19 09:59 DC Triamcinolone Acetonide (Kenalog 0.1% Ointment) On the dorsum of right foot. BID TOP 11/09/19 21:00 Allergies Coded Allergies: No Known Allergies (Unverified , 07/28/19) KYAW YOUNG DO Nov 14, 2019 09:16
[2019-11-14] MEDS: IBUPROFEN 400 MG TAB PO PRN (10:18)
[2019-11-14 16:17] VITALS: BP 124/76
[2019-11-14] MEDS: ACETAMINOPHEN TAB 650MG DOSE (2X325MG) PO PRN (21:01)
[2019-11-15] MEDS: NICOTINE POLACRILEX 2 MG GUM PO PRN ×2 (06:21→09:54)
[2019-11-15] MEDS: ACETAMINOPHEN TAB 650MG DOSE (2X325MG) PO PRN (06:21)
[2019-11-15 06:42] VITALS: BP 124/90
--- NOTE | 2019-11-15 08:05 | MHIPNPDOC ---
[facility] Progress Note Progress Note DATE OF SERVICE: 11/15/19 Subjective HPI: Kyaw presents today for concerns regarding his follow up. He is feeling well and is looking to get out today. The charging machine operator was not able to be contact directly. The phone number on the release form was not the right one to be contacted. The correct number is [phone]. Kyaw does not feel any thoughts of suicide or homicide. MEDICATIONS: He has not tried Abilify yet because he does not want to feel any side effects from it. Objective Appearance: Well groomed. Well nourished. Appears to be stated age. Behavior: Cooperative with good eye contact. Engaged. Pleasant. Affect: Appropriate to context. Full range. Mood: Appropriately reactive. Euthymic. Generally good. Speech: Normal rate. Normal volume. Spontaneous and Fluid. Motor: No gross motor abnormalities. Cognition: Alert, Attentive, and Oriented to person, place, time. Memory: No formal testing. No gross abnormalities of short or senior living memory noted during interview. Thought Form: Has fixed delusions that he is in a court case. Linear and goal directed. Thought Content: No evidence of suicidal ideation. No evidence of delusions. No thoughts of self harm. No evidence of aggressive or homicidal ideation. Perception: No perceptual abnormalities noted. Judgement: Intact as evidenced by decision making in the recent past. Insight: Good insight into symptoms and treatment options. Assessment Plan He is not engaged in any dangerous behavior or ideation that would be grounds for which I can make any argument for treatment over objection as symptoms alone cannot be justifiable. It is similar with involuntary criteria as he does not meet these criteria with his symptoms, and they do not appear to predispose him to acting out, as he has been fairly amenable and friendly. Vital Signs Vital Signs Date Time Temp Pulse Resp B/P (MAP) Pulse Ox O2 Delivery O2 Flow Rate FiO2 11/15/19 06:42 97.8 76 18 124/90 (101) 11/14/19 06:44 Room Air 11/13/19 16:16 18 Current Medications Current Medications Medications (Trade) Dose Ordered Sig/Ciarra Route PRN Reason Start Time Stop Time Status Last Admin Dose Admin Acetaminophen (Tylenol Tab) 650 mg Q6HP PRN PO HEADACHE or DISCOMFORT 11/09/19 00:15 11/15/19 06:21 Al Hydrox/Mg Hydrox/Simethicone (Mylanta) 30 ml Q4HP PRN PO HEARTBURN/INDIGESTION 11/09/19 00:15 Aripiprazole (AbiLIFY) 5 mg QHS PO 11/09/19 21:00 Atomoxetine HCl (Strattera (Atomoxetine)) 40 mg DAILY PO 11/09/19 09:00 11/09/19 09:58 DC Home Med (Med Rec Complete!) ASDIRECTED XX 11/08/19 15:45 11/08/19 15:35 DC Ibuprofen (Advil) 400 mg Q6HP PRN PO PAIN 11/12/19 21:45 11/14/19 10:18 Ketoconazole (Nizoral) ON THE DORSUM OF THE RI... BID TOP 11/09/19 21:00 Magnesium Hydroxide (Milk Of Magnesia) 30 ml DAILYPRN PRN PO CONSTIPATION 11/09/19 00:15 11/12/19 22:22 Nicotine (Nicoderm Cq 21mg) 1 patch DAILY PRN TD Nicotine withdrawal 11/09/19 00:15 Nicotine (Nicorette) 4 mg Q2HP PRN PO NICOTINE WITHDRAWAL 11/09/19 10:00 11/15/19 06:21 Olanzapine (ZyPREXA ZYDIS) 5 mg Q4HP PRN PO AGITATION 11/09/19 00:15 Risperidone (RisperDAL) 1 mg QHS PO 11/09/19 21:00 11/09/19 09:59 DC Triamcinolone Acetonide (Kenalog 0.1% Ointment) On the dorsum of right foot. BID TOP 11/09/19 21:00 Allergies Coded Allergies: No Known Allergies (Unverified , 07/28/19) KYAW YOUNG DO Nov 15, 2019 08:05
[2019-11-15] MEDS: KETOCONAZOLE 2% CREAM TOP SCH (09:00)
[2019-11-15] MEDS: TRIAMCINOLONE ACET 0.1% OINTMENT 15 GM TOP SCH (09:00)
== END 2019-11-16 10:28 | disposition home or self-care (01) | DRG 751 ==
LOC: M ED 13:41 → M ED INP 11-09 00:13 → M PSY 11-09 01:33
PROVIDERS: ADMIT Psychiatry & Neurology Addiction Medicine; ATTEND Psychiatry & Neurology Addiction Medicine
DX: F29 Unspecified psychosis not due to a substance or known physiological condition (principal); B18.2 Chronic viral hepatitis C; F31.2 Bipolar disorder, current episode manic severe with psychotic features; F12.90 Cannabis use, unspecified, uncomplicated; Z79.899 Other long term (current) drug therapy; F90.9 Attention-deficit hyperactivity disorder, unspecified type; R21 Rash and other nonspecific skin eruption

== ENCOUNTER → 2019-12-06 | Emergency (ER) | payer MEDICAID, OTHER ==
[~2019-12-06] MED LIST changes: +ATOM40CA9 PO; +MED REC COMMENT; +RISP1TAB3 PO
--- NOTE | 2020-01-07 15:31 | ECGEPIP ---
[facility] - ED Test Date: 2019-12-06 Pat Name: KYAW QUIÑONES Department: Room: - Gender: Male Manager Personnel Selection: TABATHA : 1980 Requested By: Astrid Buckley Order Number: [id number] Reading MD: Astrid Buckley Measurements Intervals [place] Rate: 49 P: 61 RI: 157 QRS: 67 QRSD: 98 T: 68 QT: 412 QTc: 373 Interpretive Statements SINUS BRADYCARDIA BORDERLINE ECG PROB. EARLY REPOLORIZATION CLINICAL CORRELATE SEE SCANNED DOWNTIME REPORT
[2020-01-10 18:08] LABS: BASO # 0.1 10^3/uL (0.0-0.2); BASO % 1.2 % (0.0-1.0); EOS # 0.1 10^3/uL (0.0-0.5); EOS % 2.4 % (0.0-3.0); HEMATOCRIT 48.4 % (42.0-52.0); HEMOGLOBIN 15.5 g/dl (13.5-17.5); LYMPH # 1.1 10^3/uL (1.5-5.0); LYMPH % 21.8 % (24.0-44.0); MEAN CORPUSCULAR HEMOGLOBIN 30.8 pg (27.0-33.0); MEAN CORPUSCULAR VOLUME 96.2 fl (80.0-96.0); MONO # 0.6 10^3/uL (0.0-0.8); MONO % 11.7 % (0.0-5.0); NEUTROPHILS # 3.1 10^3/uL (1.5-8.5); NEUTROPHILS % 62.7 % (36.0-66.0); PLATELET COUNT, AUTOMATED 142 10^3/uL (150-450); RED BLOOD COUNT 5.03 10^6/uL (4.30-6.10)
[2020-01-10 18:22] LABS: APPEARANCE, URINE CLEAR (CLEAR); BACTERIA, URINE AUTO NEGATIVE (NEGATIVE); BILIRUBIN, URINE AUTO NEGATIVE (NEGATIVE); BLOOD, URINE BLOOD NEGATIVE (NEGATIVE); COLOR, URINE YELLOW (YELLOW); GLUCOSE, URINE (UA) AUTO NEGATIVE (NEGATIVE); KETONE, URINE AUTO NEGATIVE (NEGATIVE); LEUKOCYTE ESTERASE, URINE AUTO NEGATIVE (NEGATIVE); NITRITE, URINE AUTO NEGATIVE (NEGATIVE); PROTEIN, URINE AUTO NEGATIVE (NEGATIVE); RBC, URINE AUTO 0 /HPF (0-3); SPECIFIC GRAVITY URINE AUTO 1.017 (1.002-1.035); SQUAMOUS EPITHELIAL CELL UR AU 0 /HPF (0-6); UROBILINOGEN, URINE AUTO 0.2 mg/dL (0.0-2.0); WBC, URINE AUTO 0 /HPF (0-3)
[2020-01-23 23:55] LABS: ACETAMINOPHEN LEVEL < 2.0 UG/ML (10.0-30.0); ALBUMIN 3.5 GM/DL (3.2-5.2); ALT/SGPT 50 U/L (12-78); AMPHETAMINES LEVEL URINE NEGATIVE (NEGATIVE); BARBITURATES URINE NEGATIVE (NEGATIVE); BENZODIAZEPINES URINE NEGATIVE (NEGATIVE); BILIRUBIN,DIRECT 0.2 MG/DL (0.0-0.2); BILIRUBIN,TOTAL 0.5 MG/DL (0.2-1.0); BLOOD UREA NITROGEN 14 MG/DL (7-18); CALCIUM LEVEL 8.4 MG/DL (8.5-10.1); CANNABINOIDS URINE POSITIVE (NEGATIVE); CARBON DIOXIDE LEVEL 30 MEQ/L (21-32); CHLORIDE LEVEL 111 MEQ/L (98-107); COCAINE METABOLITE URINE NEGATIVE (NEGATIVE); CREATININE FOR GFR 0.83 MG/DL (0.70-1.30); ETHYL ALCOHOL (ETHANOL) < 0.003 % (0.000-0.010); GLOMERULAR FILTRATION RATE > 60.0 (>60); GLUCOSE, FASTING 93 MG/DL (70-100); METHADONE URINE NEGATIVE (NEGATIVE); OPIATES URINE POSITIVE (NEGATIVE); PHENCYCLIDINE URINE NEGATIVE (NEGATIVE); POTASSIUM SERUM 4.9 MEQ/L (3.5-5.1); SALICYLATE LEVEL < 1.7 MG/DL (5.0-30.0); SODIUM LEVEL 143 MEQ/L (136-145); THYROID STIMULATING HORMONE 0.259 uIU/ML (0.358-3.740); TOTAL PROTEIN 6.7 GM/DL (6.4-8.2)
== END ==
LOC: M ED 11:21
DX: F29 Unspecified psychosis not due to a substance or known physiological condition (principal); R45.850 Homicidal ideations; Z79.899 Other long term (current) drug therapy; Z88.5 Allergy status to narcotic agent
CPT/HCPCS: 36415; 80048; 80076; 80307; 81001; 84443; 85025; 93005; 99285; G0480; U0002

== ENCOUNTER → 2020-03-07 | Outpatient (CLI) | payer OTHER ==
--- NOTE | 2020-03-07 15:52 | REP ---
INDICATION: TUBERCULOSIS SCREENING. COMPARISON: None. TECHNIQUE: Two views FINDINGS: The lung carednas are well inflated and clear. The heart, mediastinal hilar contours are normal. No pulmonary nodule, apical pleuroparenchymal scarring, lateral pleural thickening or other acute finding the heart, mediastinal and hilar contours are normal. No mediastinal or hilar mass. The aorta and airway intact. The bony thorax shows no compression deformity or focal lesion IMPRESSION: 1. No acute cardiopulmonary change. Negative examination. <Electronically signed by Zeeshan Becker > 03/07/20 [id number]
== END ==
LOC: M WUC 14:21
PROVIDERS: ATTEND Surgery
DX: A15.9 Respiratory tuberculosis unspecified (principal)

== ENCOUNTER → 2020-04-15 | Outpatient (REF) | payer OTHER ==
[~2020-04-15] MED LIST changes: +RISP-8 PO; -RISP1TAB3 PO
[2020-04-15 16:57] LABS: ALBUMIN 4.2 GM/DL (3.2-5.2); BLOOD UREA NITROGEN 10 MG/DL (7-18); CALCIUM LEVEL 9.3 MG/DL (8.5-10.1); CARBON DIOXIDE LEVEL 29 MEQ/L (21-32); CHLORIDE LEVEL 107 MEQ/L (98-107); CREATININE FOR GFR 0.92 MG/DL (0.70-1.30); FREE T4 1.06 NG/DL (0.76-1.46); GLOMERULAR FILTRATION RATE > 60.0 (>60); GLUCOSE, FASTING 110 MG/DL (70-100); LITHIUM LEVEL 0.82 MEQ/L (0.60-1.20); POTASSIUM SERUM 4.2 MEQ/L (3.5-5.1); SODIUM LEVEL 141 MEQ/L (136-145)
== END ==
LOC: M LAB REF 15:57
PROVIDERS: ATTEND Surgery
DX: Z79.899 Other long term (current) drug therapy (principal)

== ENCOUNTER → 2021-01-28 | Outpatient (CLI) | payer OTHER ==
[2021-01-28 14:15] LABS: HEMATOCRIT 43.7 % (42.0-52.0); HEMOGLOBIN 14.4 g/dl (13.5-17.5); MEAN CORPUSCULAR HEMOGLOBIN 31.6 pg (27.0-33.0); MEAN CORPUSCULAR VOLUME 95.8 fl (80.0-96.0); PLATELET COUNT, AUTOMATED 143 10^3/uL (150-450); RED BLOOD COUNT 4.56 10^6/uL (4.30-6.10)
--- NOTE | 2021-01-28 15:24 | ECGEPIP ---
[facility] Test Date: 2021-01-28 Pat Name: KYAW QUIÑONES Department: Room: - Gender: Male Highway Patrol Officer: PRICILLA : 1980 Requested By: Juan Francisco Rogers Order Number: [id number] Reading MD: Marito Kendall Measurements Intervals [place] Rate: 53 P: 1 MT: 156 QRS: -1 QRSD: 102 T: -2 QT: 394 QTc: 369 Interpretive Statements Sinus bradycardia ST elevation, early repolarization No significant change compared with 12/06/2019. Electronically Signed on 01-28-2021 15:23:39 EDT by Marito Kendall
[2021-01-28 15:36] LABS: GC DNA AMPLIFICATION NEGATIVE (NEGATIVE)
[2021-01-28 17:00] LABS: ALBUMIN 3.6 GM/DL (3.2-5.2); ALT/SGPT 56 U/L (12-78); BILIRUBIN,TOTAL 0.4 MG/DL (0.2-1.0); BLOOD UREA NITROGEN 17 MG/DL (7-18); CARBON DIOXIDE LEVEL 31 MEQ/L (21-32); CHLORIDE LEVEL 109 MEQ/L (98-107); CREATININE FOR GFR 0.81 MG/DL (0.70-1.30); GLOMERULAR FILTRATION RATE > 60.0 (>60); GLUCOSE, FASTING 108 MG/DL (70-100); POTASSIUM SERUM 4.5 MEQ/L (3.5-5.1); SODIUM LEVEL 141 MEQ/L (136-145); THYROID STIMULATING HORMONE 0.558 uIU/ML (0.358-3.740); TOTAL PROTEIN 6.9 GM/DL (6.4-8.2)
[2021-01-28 17:14] LABS: HEPATITIS B SURFACE ANTIGEN NEGATIVE (NEGATIVE)
[2021-01-28 17:43] LABS: HIV 1&2 SCREEN CENTAUR NEGATIVE (NEGATIVE)
[2021-01-28 17:48] LABS: HEPATITIS C VIRUS ABY INDEX > 11.0 INDEX (<0.8)
== END ==
LOC: M LAB 12:57
PROVIDERS: ATTEND Family Medicine
DX: F11.20 Opioid dependence, uncomplicated (principal)

== ENCOUNTER → 2021-05-20 | Outpatient (CLI) | payer OTHER ==
[2021-05-20 15:54] LABS: BASO # 0.1 10^3/uL (0.0-0.2); BASO % 1.3 % (0.0-1.0); EOS # 0.1 10^3/uL (0.0-0.5); EOS % 1.3 % (0.0-3.0); HEMATOCRIT 44.5 % (42.0-52.0); HEMOGLOBIN 14.8 g/dl (13.5-17.5); LYMPH # 1.3 10^3/uL (1.5-5.0); MEAN CORPUSCULAR HEMOGLOBIN 31.3 pg (27.0-33.0); MEAN CORPUSCULAR HGB CONC 33.3 g/dl (32.0-36.5); MEAN CORPUSCULAR VOLUME 94.1 fl (80.0-96.0); MONO # 0.5 10^3/uL (0.0-0.8); MONO % 10.1 % (2.0-8.0); NEUTROPHILS # 2.8 10^3/uL (1.5-8.5); NEUTROPHILS % 59.1 % (36.0-66.0); PLATELET COUNT, AUTOMATED 144 10^3/uL (150-450); RED BLOOD COUNT 4.73 10^6/uL (4.30-6.10); WHITE BLOOD COUNT 4.8 10^3/uL (4.0-10.0)
[2021-05-20 16:20] LABS: ALBUMIN 3.7 GM/DL (3.2-5.2); ALT/SGPT 55 U/L (12-78); BILIRUBIN,TOTAL 0.6 MG/DL (0.2-1.0); BLOOD UREA NITROGEN 10 MG/DL (7-18); CALCIUM LEVEL 8.9 MG/DL (8.5-10.1); CARBON DIOXIDE LEVEL 31 MEQ/L (21-32); CHLORIDE LEVEL 107 MEQ/L (98-107); CHOLESTEROL LEVEL 124 MG/DL (<200); CREATININE FOR GFR 0.77 MG/DL (0.70-1.30); GLOMERULAR FILTRATION RATE > 60.0 (>60); GLUCOSE, FASTING 64 MG/DL (70-100); HDL CHOLESTEROL 67 MG/DL (>40); LDL CHOLESTEROL 43 MG/DL (<100); NON-HDL-C 57 MG/DL; SODIUM LEVEL 141 MEQ/L (136-145); TOTAL PROTEIN 6.8 GM/DL (6.4-8.2); TRIGLYCERIDES LEVEL 72 MG/DL (<150)
[2021-05-20 16:43] LABS: HEMOGLOBIN A1c 4.7 %
== END ==
LOC: M RAD 14:40
PROVIDERS: ATTEND Internal Medicine
DX: Z00.01 Encounter for general adult medical examination with abnormal findings (principal); S80.819A Abrasion, unspecified lower leg, initial encounter; X58.XXXA Exposure to other specified factors, initial encounter; Y92.9 Unspecified place or not applicable; Y93.9 Activity, unspecified; Y99.9 Unspecified external cause status; Z13.1 Encounter for screening for diabetes mellitus; Z13.220 Encounter for screening for lipoid disorders

== ENCOUNTER 2022-03-04 12:43 | Emergency (ER) | payer OTHER ==
[~2022-03-04] VITALS: Ht 198.1 cm; Wt 79.7 kg
[2022-03-04 12:44] VITALS: BP 129/82
[2022-03-04] MEDS ORDERED: METH5TA PO (13:14)
== END 2022-03-04 15:00 | disposition left against medical advice (07) ==
LOC: M ED 12:43
DX: Z53.21 Procedure and treatment not carried out due to patient leaving prior to being seen by health care provider (principal)

== ENCOUNTER 2022-09-02 17:05 | Emergency (ER) | payer OTHER ==
[~2022-09-02] VITALS: Ht 198.1 cm; Wt 77.6 kg
[~2022-09-02 17:05] MED LIST changes: +METH5TA PO
[2022-09-02 17:06] VITALS: BP 114/66
[2022-09-02] MEDS ORDERED: AMOX875T PO (18:53)
== END 2022-09-02 19:01 | disposition home or self-care (01) ==
LOC: M ED 17:05
DX: K02.7 Dental root caries (principal)

== ENCOUNTER → 2023-03-31 | Outpatient (CLI) | payer OTHER ==
[~2023-03-31] MED LIST changes: +AMOX875T PO
[2023-03-31 11:41] LABS: HEMATOCRIT 46.6 % (42.0-52.0); HEMOGLOBIN 15.2 g/dl (13.5-17.5); MEAN CORPUSCULAR HEMOGLOBIN 31.9 pg (27.0-33.0); MEAN CORPUSCULAR HGB CONC 32.6 g/dl (32.0-36.5); MEAN CORPUSCULAR VOLUME 97.7 fl (80.0-96.0); PLATELET COUNT, AUTOMATED 152 10^3/uL (150-450); RED BLOOD COUNT 4.77 10^6/uL (4.30-6.10); WHITE BLOOD COUNT 4.6 10^3/uL (4.0-10.0)
[2023-03-31 12:06] LABS: ALBUMIN 3.8 G/DL (3.2-5.2); ALKALINE PHOSPHATASE 50 U/L (46-116); ALT/SGPT 40 U/L (7.0-40); AST/SGOT 37 U/L (<34); BILIRUBIN,TOTAL 0.5 MG/DL (0.3-1.2); BLOOD UREA NITROGEN 9 MG/DL (9-23); CARBON DIOXIDE LEVEL 34 MMOL/L (20-31); CHLORIDE LEVEL 102 MMOL/L (98-107); CREATININE FOR GFR 0.65 MG/DL (0.70-1.30); GLOMERULAR FILTRATION RATE > 60.0 (>60); GLUCOSE, FASTING 76 MG/DL (60-100); POTASSIUM SERUM 4.6 MMOL/L (3.5-5.1); SODIUM LEVEL 141 MMOL/L (136-145); TOTAL PROTEIN 6.9 G/DL (5.7-8.2)
[2023-03-31 12:37] LABS: HIV 1&2 SCREEN NEGATIVE (NEGATIVE)
[2023-03-31 12:55] LABS: HEPATITIS C VIRUS ABY INDEX > 11.00 INDEX (<0.8)
[2023-03-31 13:35] LABS: CHLAMYDIA DNA AMPLIFICATION NEGATIVE (NEGATIVE); GC DNA AMPLIFICATION NEGATIVE (NEGATIVE)
== END ==
LOC: M LAB 10:38
PROVIDERS: ATTEND Family Medicine
DX: F11.20 Opioid dependence, uncomplicated (principal)

== ENCOUNTER → 2023-04-20 | Outpatient (REF) | LOC: M LAB 11:24 | PROVIDERS: ATTEND Nurse Practitioner Adult Health | DX: Z02.89 Encounter for other administrative examinations (principal) ==

== ENCOUNTER → 2025-04-05 | Outpatient (CLI) | payer OTHER ==
[~2025-04-05] MED LIST changes: -DIPH50CA PO; +DIPH50CA31 PO; +RISP-105 PO; -RISP-8 PO
[2025-04-05 13:40] LABS: PLATELET COUNT, AUTOMATED 138 10^3/uL (150-450)
[2025-04-05 13:48] LABS: ALT/SGPT 69 U/L (7.0-40); AST/SGOT 78 U/L (<34); CALCIUM LEVEL 8.9 MG/DL (8.5-10.1); CARBON DIOXIDE LEVEL 32 MMOL/L (20-31); CHLORIDE LEVEL 105 MMOL/L (98-107); CREATININE FOR GFR 0.79 MG/DL (0.70-1.30); GLOMERULAR FILTRATION RATE > 90.0 (>60); HEPATITIS B SURFACE ANTIBODY NEGATIVE (POSITIVE); POTASSIUM SERUM 4.6 MMOL/L (3.5-5.1); SODIUM LEVEL 144 MMOL/L (136-145)
[2025-04-05 14:13] LABS: HIV 1&2 SCREEN NEGATIVE (NEGATIVE)
[2025-04-05 14:24] LABS: HEPATITIS C VIRUS ABY INDEX > 11.00 INDEX (<0.8)
[2025-04-05 14:49] LABS: Trichomonas vaginalis (AMP) NOT DETECTED (NEGATIVE)
[2025-04-05 15:13] LABS: GC DNA AMPLIFICATION NEGATIVE (NEGATIVE)
[2025-04-08 11:41] LABS: HCV RNA log10 6.0 Log IU/mL (NOT DETECTED)
== END ==
LOC: M PLALAB 08:57
PROVIDERS: ATTEND Family Medicine
DX: F11.20 Opioid dependence, uncomplicated (principal)